=== PATIENT | male | born 1960 | race Caucasian/White ===

== ENCOUNTER 2018-06-20 05:48 | Inpatient (IN) ==
[2018-06-20] MEDS ORDERED: LIDOCAINE W/ SODIUM BICARB 0.5 ML SYR SUBD ONE (06:00)
[2018-06-20] MEDS ORDERED: ceFAZolin Inj 2gm (Premix) 2 GM/50 ML BAG IV ONE ×2 (06:00→06:04)
[2018-06-20] MEDS ORDERED: Nasal Sanitizer POPSWAB ampule 3 AMP (Nozin) PREOP DOSE ENOS SCH (06:00)
[2018-06-20] MEDS ORDERED: Lactated Ringers 1,000 ML PRIMARY IV ONE ×2 (06:00→06:04)
[2018-06-20] MEDS ORDERED: Sodium Chloride 0.9% 250 ML ONE (06:04)
[2018-06-20] MEDS ORDERED: Vancomycin Inj 1gm vial ONE ×2 (06:04→07:07)
[2018-06-20] MEDS ORDERED: LIDOCAINE W/ SODIUM BICARB 0.5 ML SYR ONE (06:05)
[2018-06-20] MEDS ORDERED: PROPOFOL 10 MG/1 ML (200 MG/20 ML) VIAL IV ONE (07:04)
[2018-06-20] MEDS ORDERED: LIDOCAINE MPF 2% - 5 ML (20 MG/1 ML) ONE (07:04)
[2018-06-20] MEDS ORDERED: ROCURONIUM 10 MG/1 ML - 5 ML VIAL IVP ONE ×2 (07:05→09:26)
[2018-06-20] MEDS ORDERED: fentaNYL Inj 250 MCG/5 ML VIAL ONE ×2 (07:05→13:20)
[2018-06-20] MEDS ORDERED: KETOROLAC 30 MG/1 ML VIAL ONE (07:06)
[2018-06-20] MEDS ORDERED: ONDANSETRON 4 MG/2 ML VIAL ONE (07:06)
[2018-06-20] MEDS ORDERED: Gentamicin Inj 40 MG/ML VIAL ONE (07:07)
[2018-06-20] MEDS ORDERED: BUPivacaine Inj 0.25% PF - 10ml vial ONE ×2 (07:07→08:06)
[2018-06-20] MEDS ORDERED: Sodium Chloride 0.9% vial 50 ML ONE (07:07)
[2018-06-20] MEDS ORDERED: BACITRACIN 50,000 UNIT VIAL IRRIG ONE (07:08)
[2018-06-20] MEDS ORDERED: BUPivacaine Liposome/PF (Exparel) Inj 20ml vial INFIL ONE (07:08)
[2018-06-20] MEDS ORDERED: THROMBIN (BOVINE) 20,000 UNIT KIT TOPICAL ONE (07:08)
[2018-06-20] MEDS ORDERED: LIDOCAINE HCL 2 % 10 ML JELLY URO-JECT TOPICAL ONE (07:16)
[2018-06-20] MEDS ORDERED: BUPIVACAINE 0.25% W/ EPI - 10 ML VIAL ONE (08:06)
[2018-06-20] MEDS ORDERED: DEXAMETHASONE PF 10 MG/1 ML VIAL ONE (08:32)
[2018-06-20] MEDS ORDERED: LIDOCAINE HCL 2 % 10 ML JELLY URO-JECT TOPICAL PRN (08:32)
[2018-06-20] MEDS ORDERED: ePHEDrine Inj 50 MG/ML AMP ONE (08:53)
[2018-06-20] MEDS ORDERED: NEOSTIGMINE 1 MG/1 ML - 10 ML ONE (10:34)
[2018-06-20] MEDS ORDERED: GLYCOPYRROLATE 0.2 MG/1 ML VIAL ONE (11:32)
[2018-06-20] MEDS ORDERED: ceFAZolin 1 GM VIAL ONE (12:33)
[2018-06-20] MEDS ORDERED: FUROSEMIDE 10 MG/1 ML - 4 ML ONE (12:37)
[2018-06-20] MEDS ORDERED: fentaNYL Inj 100 MCG/2 ML VIAL IVP PRN (15:23)
[2018-06-20] MEDS ORDERED: MORPHINE SULFATE 2 MG/1 ML IVP PRN (15:23)
[2018-06-20] MEDS ORDERED: LIDOCAINE W/ SODIUM BICARB 0.5 ML SYR SUBD PRN (15:23)
--- NOTE | 2018-06-20 15:28 | CRNA.PROGR ---
Anesthesia Time - Procedure/Recovery Time Start Date: 06/20/18 End Date: 06/20/18 Anesthesia : Time In: 07:28 Anesthesia : Time Out: 15:19 Anesthesia : Total Time: 471 - Total Anesthesia Time Total Anesthesia Time (minutes): 471 - Other Weight: 82.1 kg Height: 5 ft 9 in Body Mass Index (BMI): 26.7 Physical Status: P2 Anesthesia Type: General Anesthesia : ET
--- NOTE | 2018-06-20 15:29 | CRNA.PROGR ---
Anesthesia Recovery Phase I - Post Anesthesia Evaluation Patient's Condition on Arrival in Phase II: Stable Pain Level: 5
[2018-06-20] MEDS: HYDROmorphone 2 MG/1 ML IVP PRN ×2 (15:35→15:46)
[2018-06-20] MEDS ORDERED: HYDROmorphone 2 MG/1 ML ONE (15:36)
[2018-06-20] MEDS ORDERED: Metoclopramide Inj 10 MG/2 ML VIAL IVP PRN (16:23)
[2018-06-20] MEDS ORDERED: MAGNESIUM CITRATE 296 ML SOLUTION PO PRN (16:23)
[2018-06-20] MEDS ORDERED: Prochlorperazine Edisylate Inj 10mg/2ml vial IVP PRN (16:23)
[2018-06-20] MEDS ORDERED: Ondansetron ODT Tab 4 MG TAB PO PRN (16:23)
[2018-06-20] MEDS ORDERED: Vancomycin-PHA to Dose IV SCH (16:23)
[2018-06-20] MEDS ORDERED: oxyCODONE/APAP 10/325 Tab 1 EACH TAB PO PRN (16:23)
[2018-06-20] MEDS ORDERED: PROMETHAZINE 25 MG/1 ML VIAL IM PRN (16:23)
[2018-06-20] MEDS ORDERED: DIAZEPAM 5 MG TABLET PO PRN (16:23)
[2018-06-20] MEDS ORDERED: DIAZEPAM 10 MG/2 ML (5 MG/1 ML) CARPUJECT IVP PRN (16:23)
[2018-06-20] MEDS ORDERED: DOCUSATE 100 MG CAPSULE PO PRN (16:23)
[2018-06-20] MEDS ORDERED: Fleet Enema 133ml RECTAL PRN (16:23)
[2018-06-20] MEDS ORDERED: oxyCODONE-ACETAMINOPHEN 5-325 TAB PO PRN (16:23)
[2018-06-20] MEDS ORDERED: oxyCODONE/APAP 7.5/325 Tab 1 TAB TAB PO PRN (16:23)
[2018-06-20] MEDS ORDERED: MECOBALAMIN 1000 MCG SL SCH (16:23)
[2018-06-20] MEDS ORDERED: MAGNESIUM 400 MG/5 ML - 30 ML (MILK OF MAGNESIA) PO PRN (16:23)
[2018-06-20] MEDS ORDERED: BISACODYL 5 MG TABLET PO PRN (16:23)
[2018-06-20] MEDS ORDERED: ONDANSETRON 4 MG/2 ML VIAL IVP PRN (16:23)
[2018-06-20] MEDS: MORPHINE SULFATE 2 MG/1 ML IVP PRN ×2 (17:20→23:10)
[2018-06-20] MEDS: ceFAZolin Inj 1 GM in Sodium Chloride 0.9% 100 ML IV SCH (18:37)
--- NOTE | 2018-06-20 19:40 | GEN.OPNOTE ---
Operative Note Surgery Date: 06/20/18 Preoperative Diagnosis: 1. Chronic low back pain. 2. Left leg pain. 3. Focal advanced lumbar degenerative disc disease, L5-S1. 4. Lumbar spondylosis, advanced facet arthropathy L4-5 and L5-S1. 5. Broad based disc bulge L5-S1 producing bilateral lateral recess stenosis, left greater than right. 6. Bilateral L5 neuroforaminal stenosis, worse on the left. Postoperative Diagnosis: 1. Chronic low back pain. 2. Left leg pain. 3. Focal advanced lumbar degenerative disc disease, L5-S1. 4. Lumbar spondylosis, advanced facet arthropathy L4-5 and L5-S1. 5. Lumbar central canal stenosis with bilateral lateral recess and neuroforaminal stenosis. 6. Broad based disc bulge L5-S1 producing bilateral lateral recess stenosis, left greater than right. 7. Bilateral L5 neuroforaminal stenosis, worse on the left. Procedure: 1.) Partial L4 laminectomy with medial facetectomies and foraminotomies for decompression of central canal, bilateral lateral recess, and bilateral neuroforaminal stenosis at the L4-5 level. (CPT code: 25223-25-50). 2.) Complete L5 laminectomy with medial facetectomies and foraminotomies for decompression of bilateral lateral recess and neuroforaminal stenosis. (CPT code 09303-37-07). 3.) Arthrodesis, combined posterolateral and posterior interbody technique, L4-5. (CPT code: 09360). 4.) Arthrodesis, combined posterolateral and posterior interbody technique, L5-S1. (CPT code: 67694). 5.) Insertion 10 mm x 11 mm x [address]anium [address] titanium lumbar interbody cage filled in the center with autograft into the L4-5 interspace for fusion of the L4-5 interspace. (CPT code: 39604). 6.) Insertion 10 mm x 11 mm x [address] titanium lumbar interbody cage filled in the center with autograft into the L5-S1 interspace for fusion of the L5-S1 interspace. (CPT code: 54800). 7.) Segmental posterolateral instrumentation L4-S1 using the MilePoint Shana 3 pedicle screw and fannie system. (CPT code: 11021). 8.) Use of autograft, harvested through the same incision, cleaned of soft tissue and morselized, for interbody and posterolateral fusion. (CPT code: 29912). 9.) Use of 20cc [place] Vitoss Bimodal synthetic bone fusion product/promotor (implantable allograft), 4 cc of Marie [employer] Active Matrix (implantable allograft), and 30 cc Mei BIO DBM Putty Plus cancelleous (implantable allograft) for interbody and posterolateral fusion. (CPT code: 54262). 10.) Use of the MilePoint computer assisted neuronavigation system for cannulization of the L4, L5, and S1 pedicles bilaterally for the subsequent placement of the L4, L5, and S1 pedicle screws bilaterally. (CPT code: 37030). 11.) Use of intra-operative fluoroscopy for localization of the correct surgical level and for final confirmation of the position of the L4-5 intervertebral cage and final confirmation of the position of the L4-5 posterolateral hardware elements. 12.) Use of intra-operative neuromonitoring including free running EMG's, triggered EMG's, and SSEP's. Surgeon: Donnie Hernandez MD [employer] Crewman: AMANDA Deras Anesthesia Provider: Danny Lehman MD Anesthesia Type: General Estimated Blood Loss (mL): 600 Fluids: See anesthesia record Pathology: None Indications: Mr. Painting is a 57 year old male who presented on 11/07/2017 in new patient evaluation in my [facility] [place]. He was a previous patient of mine in my previous [facility] practice. He was last seen in my [facility] outreach clinic on 01/20/2017. He had imaging studies that demonstrated degenerative changes most advanced at the L4-5 and L5-S1 levels. He had failed non-operative treatments including multiple lumbar percutaneous procedures performed by Dr. Glass. Mr. Painting presented to my new practice with the same symptoms that he had previously but worse; low back pain and left leg pain. He has had back issues since the 1979'S. He has had additional injections by Dr. Glass in the past year and done physical therapy that have not provided any durable relief of his symptoms. We had discussed proceeding with a L4-5 and L5-S1 transforaminal lumbar interbody and L4-S1 posterolateral instrumented fusion for potential durable relief of his symptoms. He wished to undergo the surgical procedure and presented today to have that procedure performed. Findings: 1.) Arthropathy/hypertrophy of the L4-5 and L5-S1 facet joints bilaterally. 2.) Lumbar central canal, bilateral lateral recess, and bilateral neuroforaminal stenosis, L4-5. 3.) Severe bilateral lateral recess and severe bilateral neuroforaminal stenosis, L5-S1. Complications: None Operative Summary: Mr. Painting was met in the pre-operative area. His surgical history and physical in his chart was reviewed. I reviewed with him the procedure to be performed and we were in agreement on the procedure and this matched what was written on the patient's consent form. I answered any questions that he had before he was taken back to the operating room suite. Mr. Painting was brought back to the operating room suite. He was put under general anesthesia and intubated by the anesthesia staff. He had a Jennings catheter placed in his bladder for the procedure. He had pneumatic compression hose placed on his lower legs bilaterally. Mr. Painting was carefully rolled over onto the Ayaz surgical table. His arms were gently positioned upwards with his shoulders abducted less than 90. His arms were well-padded with foam padding on top of the padding the surgical armboards. The region of his chest and axilla was checked bilaterally to make sure that there were no pressure points over the region of the brachial plexus bilaterally. His nipples were checked be below the chest pad of the Ayaz table with no pressure points. All bony prominences were well padded. His Jennings catheter was checked be free from kinks. His pneumatic compression hose was attached and pneumatic compression device. The C-arm fluoroscopy unit was used to help jerrell the skin incision for the appr oach to the intended surgical levels. The intended incision with several crosshatches were marked on the skin with a skin marker. Mr. Alonzo was prepped and draped in the usual and standard fashion. He was given 2 grams of Ancef and a gram of vancomycin IV for perioperative antibiosis. He was given 10 mg of Decadron IV. A standard surgical timeout was performed identifying the correct patient, the correct procedure, and the correct equipment being available for the procedure. The intended skin incision was injected subcutaneously with quarter percent Marcaine with 1 in 200,000 epinephrine. 20 mL of local anesthetic was used. The skin was incised with a 10 blade scalpel and all dermal and superficial bleeding points were controlled with bipolar cautery. Dissection was continued down through the subcutaneous tissue to the lumbar fascia. The lumbar fascia was incised along the borders of the spinous processes and subperiosteal dissection was performed down the spinous processes and out over the lamina with Bovie cautery. When the inferior aspect of the lamina was identified a [place] 4 was placed underneath the lamina and the level was localized with lateral fluoroscopy. Continued subperiosteal dissection was performed until the final exposure was of the inferior aspect the L3 lamina, the L4 lamina, the L5, and the upper part of the sacrum bilaterally. The dissection was continued laterally over the L3-4 and L4-5 and L5-S1 facet joints and out laterally over the L4 and L5 transverse processes and the sacral alar bilaterally. Cerebellar Gelpi retractors were placed for self-retaining retraction. Soft tissue was cleaned over the posterior aspect of the spine using Bovie cautery as well as a large Leksell rongeur. Extensive decortication of the L4, and L5 transverse processes and the sacral alar bilaterally as well as the lateral aspect of the L3-4 facet joint and the lateral and posterior aspect of the L4-5 and L5-S1 facet joints after removing the hypertrophied posterior aspect of the L4-5 and L5-S1 facet joints with a large Leksell rongeur bilaterally was performed. The L5 lamina and the upper part of the sacrum was decorticated as well. All decortication was performed with a high-speed [employer] electric drill with a matchstick bit. The bone dust created was collected and saved to be used as autograft for the fusion portion of the procedure. The Mei neuro navigation reference arc was securely attached to the L3 spinous process and a spin was performed with the [facility] 3-D fluoroscopy unit. The Mei neuro navigation pedicle probe was then used to cannulate the L4, L5, and S1 pedicles bilaterally. A Jamshidi needle was then inserted into the left L4 pedicle and 15cc of vertebral body bone marrow was collected and used to saturate 20 mL of the Mei Vitoss synthetic bone product (with the Vitoss also saturated with 5 cc of Marie [employer] Active Matrix (implantable allograft)), intended for the posterior lateral fusion. The internal aspects of the L4, L5, and S1 pedicles were palpated bilaterally with a small ball-tip instrument. The pedicles were then tapped with the appropriate size Mei Josue 3 pedicle tap. The internal aspect of the pedicles were palpated with a small ball-tip instrument again. The pedicle screws were then placed. 5.5 x 55 mm pedicle screws were placed into the L4 and L5 pedicles bilaterally. 6.5 x 50 mm pedicle screws were placed into the S1 pedicles bilaterally. The pedicle screws obtained good purchase in the pedicle and vertebral body bone at each level bilaterally. The pedicle screws were then interrogated with triggered EMGs all demonstrating sufficiently high impedance (30 mA or above) indicating that all the pedicle screws were not in close proximity to nerve s tructures. Another spin was performed with the [employer] 3-D fluoroscopy unit providing further confirmation that the pedicle screws were indeed confined within the confines of the pedicles at each level bilaterally and that the pedicle screws were all bi-cortical or nearly bi-cortical in purchase as intended. Attention was turned to the decompression portion of the procedure. The caudal aspect of the L4 spinous process and the L5 spinous process was removed with a large Leksell rongeur. The L4 and L5 lamina was thinned down with the same instrument. A partial laminectomy of L4 and complete laminectomy of L5 with medial facetectomies and foraminotomies was performed bilaterally. Surgical findings included central canal, lateral recess and neuroforaminal stenosis bilaterally, greater in degree then expected on pre-operative imaging and severe L5-S1 lateral recess and neuroforaminal stenosis bilaterally. Excellent decompression of the central canal, lateral recesses, neuroforamen, and of the thecal sac and exiting and transversing nerve roots was assured by visual inspection as well as palpating in the canal and around the nerve structures with a [place] instrument. The medial facetectomy on the left at L4-5 and L5-S1 were extended laterally to provide the proper exposure needed for the intended interbody fusions at these levels. The lateral extension of the medial facetectomies were performed with the high-speed drill with a matchstick bit. A [place] 4 instrument was used to carefully dissect the soft tissue adjacent to the takeoff of the L5 nerve root and of the S1 nerve root identifying respectively the L4-5 and L5-S1 disc spaces. The Angelica nerve root retractor was used to gently retract the thecal sac and the takeoff the L5 nerve root. Epidural veins over the disc space were coagulated with bipolar cautery turned down to a low setting and then cut with microscissors. An annulotomy was performed in the L4-5 disc space with a 15 blade scalpel and disc material being removed with a pituitary rongeur. Additional disc and cartilaginous endplate was loosened in the disc space using the K2 disc space jessica in 1 mm increments from 7 mm disc space shaver to a 9 mm disc space shaver. Between the disc space jessica additional disc material was removed from the interspace using a pituitary rongeur. The large Yg down-biting curet was used to loosen disc laterally in the L4-5 disc space bilaterally with the fragments being removed with a pituitary rongeur. The large Yg down-biting curet was then used to decorticate the inferior L4 endplate and the superior L5 endplate in the L4-5 interspace. The interspace was then irrigated with bacitracin irrigation. Approximately 3.5 cc of Mei BIO DBM Putty Plus cancelleous (implantable allograft) was then placed in the L4-5 interspace and moved anteriorly with a bone tamp. The interspace was then sized for the appropriate size lumbar interbody cage. A 10 mm x 11 mm x [address] titanium lumbar interbody cage was selected and filled in the center with autograft and inserted into the L4-5 interspace using the fisher scallop. The cage was gently countersunk and rotated with a bone tamp and mallet. The cage obtained good purchase between the L4 and L5 endplates. The final position of the intervertebral cage was confirmed with lateral fluoroscopy. The Sydnee'Mag nerve root retractor was used to gently retract the thecal sac and the takeoff the S1 nerve root. Epidural veins over the disc space were coagulated with bipolar cautery turned down to a low setting and then cut with microscissors. An annulotomy was performed in the L5-S1 disc space with a 15 blade scalpel and disc material being removed with a pituitary rongeur. Additional disc and cartilaginous endplate was loosened in the disc space using the K2 disc space jessica in 1 mm increments from 7 mm disc space shaver to a 9 mm disc space shaver. Between the disc space jessica additional disc material was removed from the interspace using a pituitary rongeur. The large Yg down-biting curet was used to loosen disc laterally in the L4-5 disc space bilaterally with the fragments being removed with a pituitary rongeur. The large Yg down-biting curet was then used to decorticate the inferior L4 endplate and the superior L5 endplate in the L4-5 interspace. The interspace was then irrigated with bacitracin irrigation. Approximately 3.5 cc of MilePoint BIO DBM Putty Plus cancelleous (implantable allograft) was then placed in the L5-S1 interspace and moved anteriorly with a bone tamp. The interspace was then sized for the appropriate size lumbar interbody cage. A 10 mm x 11 mm x 28 mm Tritanium PL titanium lumbar interbody cage was selected and filled in the center with autograft and inserted into the L5-S1 interspace using the fisher scallop. The cage was gently countersunk and rotated with a bone tamp and mallet. The cage obtained good purchase between the L4 and L5 endplates. The final position of the intervertebral cage was confirmed with lateral fluoroscopy. Attention was turned back to the instrumentation portion of the procedure. A 6.0 mm x 60 mm pre-bent Mei Josue 3 titanium fannie was selected and placed in the t[place]ips of the L4, L5, and S1 pedicle screws bilaterally. Set screws were placed over the rods in the tulips of each of the pedicle screws which were tightened down hand tight initially and then tightened down to their final tightness using the torque/counter torque device. The surgical site was irrigated with a 4:1 solution of hydrogen peroxide/cholohexedine solution. The surgical site was then pulse lavaged with 3 L of vancomycin/bacitracin/gentamicin solution. The paraspinous musculature was retracted and 10 mL of MilePoint Vitoss Bimodal synthetic bone product (allograft) saturated with a 5 mL of vertebral body bone marrow and 5 cc of T3 [employer] Active Matrix was then placed lateral to the hardware construct on each side from the L4 transverse process to over the sacral alar and upper part of the sacrum bilaterally. The remaining autograft was mixed with the remaining approximately 23 mL of [place] BIO DBM Putty Plus cancelleouus which was then split with half of this product being placed lateral to the hardware construct over the bone chips and Vitoss synthetic bone product from the L4 transverse process to sacral alar and over the upper part of the sacrum bilaterally. The canal lateral recesses were inspected for any bone chips and any identified were removed with forceps. The canal lateral recesses were then irrigated with a small amount bacitracin irrigation which was subsequently removed with suction. FloSeal hemostatic agent was then placed in the lateral recess and over all exposed dural elements. A piece of compressed Gelfoam was then placed across the canal. A medium Hemovac drain was placed in the surgical site. The lumbar fascia was closed tightly with #1 Vicryl suture in an interrupted fashion. The surgical site was irrigated again with bacitracin irrigation. The deep subcutaneous tissue and fascia was re-approximated with 2-0 Vicryl suture in an interrupted fashion. 20 mL of Exoperel deluded with 10 mL of 1/4 percent Marcaine was then injected all around the incision in the subcutaneous tissue. The dermis and superficial subcutaneous tissue was reapproximated with 3-0 Vicryl suture in an inverted interrupted fashion. The Ioban drape was pulled back from the skin edges and the final layer of closure was performed surgical stainless steel rajesh. The incision was cleansed with bacitracin soaked sponge and then dried with sterile dry sponge. The incision was then dressed with a Covaderm dressing. All surgical drapes removed from Mr. Painting. He was carefully rolled over onto the PACU stretcher. He was awoken and extubated by the anesthesia staff. He was taken the recovery room in stable condition. All surgical counts reported as correct by the scrub and circulating personnel. A physician's transport assistant, Mrs. Federica Sanders PA-C, assisted with the procedure including the exposure and closure portions of the procedure. She provided irrigation and suctioning throughout the procedure. She skillfully and carefully retracted the nerve structures during the more critical portions of the procedures such as the discectomy and intervertebral cage placement portions of the procedure.
[2018-06-20] MEDS: GlipiZIDE Tab 5 MG TABLET PO SCH (20:33)
[2018-06-20] MEDS: metFORMIN 500 MG TABLET PO SCH (20:33)
[2018-06-20] MEDS: GABAPENTIN 400 MG CAPSULE PO SCH (20:34)
--- NOTE | 2018-06-20 20:47 | NEURO.PROG ---
Subjective Post Op Day: 0 Pain Management: PO Jennings Catheter: No Diet: Regular Ambulating: Yes Additional Details: Awake and alert in room on med/surg floor. Appears comfortable sitting on the side of the bed. Moving all extremities. PLAN; 1.) Continue post-operative antibiotics. 2.) Continue post-operative pain control. 3.) Mobilize. Objective : Data - Vital Signs Vital Signs and I&O: Vital Signs - Last Taken Temperature 97.5 F 06/20/18 20:32 Pulse Rate 102 H 06/20/18 20:32 Respiratory Rate 16 06/20/18 20:32 Blood Pressure 124/65 06/20/18 20:32 Pulse Ox 95 06/20/18 20:32 Intake and Output (24hr x 4 totals) 06/18/18 06/19/18 06/20/18 06/21/18 05:59 05:59 05:59 05:59 Intake Total 4100 / 4100 Output Total 1345 / 1345 Balance 2755 / 2755
[2018-06-20] MEDS ORDERED: traZODone Tab 50 MG TAB PO SCH ×2 (21:00→22:00)
--- NOTE | 2018-06-20 22:47 | CONSULT ---
Consult Note - Consult Reason for Consult: PostOp Consulation : Neuro Primary Care Provider: NONE NONE HPI - History of Present Illness History of Present Illness: There is a very nice patient who is postop 2 level fusion. Hospitalist was consulted for medical management of his diabetes patient denies any chest pain nausea or vomiting Past Medical History Medical History: Diabetes, hypertension, chronic back pain Tobacco Use: Former Smoker In the Past 12 Months, Have Used or Abuse Any of the Following Substance: None Review of Systems - Review of Systems All Systems: Reviewed & No Additional Complaints Except as Stated - Respiratory Respiratory: DENIES: Negative System Review, Cough, Sputum, Dyspnea At Rest, Dyspnea with Exertion, Pleuritic Pain, Hemoptysis, Wheezing, Other, See HPI - Cardiovascular Cardiovascular: DENIES: Negative System Review, Chest Pain, Edema, Syncope, Palpitations, Orthopnea, Paroxysmal Nocturnal Dyspnea, Other, See HPI Medication / Allergies Home Medications: Home Medications Medication Instructions Recorded Confirmed ascorbic acid (vitamin C) 500 mg mg PO 11/07/17 03/06/18 capsule aspirin 325 mg tablet 325 mg PO QDAY 11/07/17 06/19/18 biotin 5 mg capsule 5 mg PO QDAY 11/07/17 06/19/18 gabapentin 800 mg tablet 800 mg PO TID tab 11/07/17 06/19/18 glipizide 5 mg tablet 5 mg PO BID 11/07/17 06/19/18 lisinopril 2.5 mg tablet 2.5 mg PO QDAY 11/07/17 06/19/18 mecobalamin (vitamin B12) 1,000 1,000 mcg SL QDAY 11/07/17 06/19/18 mcg disintegrating tablet,sublingual metformin 1,000 mg tablet 1,000 mg PO BID 11/07/17 06/19/18 multivitamin,eq-ghvj-tgdavkob 1 tab PO QDAY 11/07/17 06/19/18 tablet trazodone 100 mg tablet 200 mg PO QDAY 11/07/17 06/19/18 venlafaxine ER 150 mg 150 mg PO QDAY 11/07/17 06/19/18 capsule,extended release 24 hr Allergies/Adverse Reactions: Allergies Allergy/AdvReac Type Severity Reaction Status Date / Time No Known Allergies Allergy Verified 06/20/18 06:18 Exam - Vitals Vital Signs: Vital Signs Temperature 97.5 F Temperature Source Temporal Artery Scan Pulse Rate [Pulse Oximeter] 102 Pulse Rate 105 Respiratory Rate 16 Blood Pressure [Left Arm] 124/65 Blood Pressure 130/73 Pulse Ox 95 Oxygen Flow Rate 4 Oxygen Delivery Method Nasal Cannula Height 5 ft 9 in Weight 181 lb - General General Appearance: No Acute Distress, Cooperative - Respiratory Respiratory Exam: POSITIVE: Clear to Auscultation - Bilaterally, Breathing Non Labored, Normal To Percussion, Normal to Percussion and Palpation - Cardiovascular Cardiovascular Exam: POSITIVE: RRR, No Murmur, No Clicks, No Gallops, No Rubs, PMI Non-Displaced Assessment and Plan - Patient Problems (1) Chronic back pain Current Visit: No Status: Chronic Code(s): M54.9 - Dorsalgia, unspecified; G89.29 - Other chronic pain (2) Chronic hepatitis Current Visit: No Status: Chronic Code(s): K73.9 - Chronic hepatitis, unspecified (3) Depression Current Visit: No Status: Chronic Code(s): F32.9 - Major depressive disorder, single episode, unspecified (4) Diabetic acidosis, type II Current Visit: No Status: Chronic Code(s): E11.10 - Type 2 diabetes mellitus with ketoacidosis without coma (5) Hepatitis C Current Visit: No Status: Chronic Code(s): B19.20 - Unspecified viral hepatitis C without hepatic coma (6) History of alcohol abuse Current Visit: No Status: Chronic Code(s): Z87.898 - Personal history of other specified conditions - Assessment / Plan Additional Assessment/Plan Details: We will continue home meds for his chronic medical conditions postop instructions as per neurosurgery. Check labs in a.m.
[2018-06-20] MEDS: traZODone Tab 50 MG TAB PO SCH (23:00)
[2018-06-21] MEDS: ceFAZolin Inj 1 GM in Sodium Chloride 0.9% 100 ML IV SCH (01:59)
[2018-06-21] MEDS: MORPHINE SULFATE 2 MG/1 ML IVP PRN ×2 (04:28→22:50)
[2018-06-21 04:45] LABS: BASOPHILS # (AUTO) 0 10*3/UL; BASOPHILS % (AUTO) 0 % (0-1); EOSINOPHILS # (AUTO) 0 10*3/UL; EOSINOPHILS % (AUTO) 0 % (0-8); Hematocrit [HCT] 30.5 % (42.0-52.0); Hemoglobin [HGB] 10.3 g/dL (14.0-18.0); LYMPHOCYTES # (AUTO) 1.26 10*3/uL; MEAN CORPUSCULAR HEMOGLOBIN 29.6 PG (27-31); MEAN CORPUSCULAR HGB CONC 33.8 g/dL (33-37); MEAN CORPUSCULAR VOLUME 87.6 FL (80-90); MEAN PLATELET VOLUME 9.9 FL (7.4-12.2); MONOCYTES # (AUTO) 1.62 10*3/UL (0.3-0.8); MONOCYTES % (AUTO) 11.9 % (5-15); NEUTROPHILS # (AUTO) 10.74 10*3/UL; NEUTROPHILS % (AUTO) 78.6 % (50-80); RED BLOOD COUNT 3.48 10^6/uL (4.70-6.10)
[2018-06-21 04:55] LABS: BLOOD UREA NITROGEN 17 mg/dL (7-22)
[2018-06-21 05:30] LABS: PLATELET MORPHOLOGY COMMENT NORMAL MORPHOLOGY (NORM); RBC MORPHOLOGY COMMENT NORMAL MORPHOLOGY (NORM); WBC MORPHOLOGY COMMENT NORMAL MORPHOLOGY (NORM)
--- NOTE | 2018-06-21 06:43 | NEURO.PROG ---
Subjective Post Op Day: 1 Pain Management: PO Blood Catheter: Yes Diet: Regular Additional Details: On rounds this morning with Dr Hernandez, Mr Painting is awake and alert. He complains of back pain but says his left leg pain seems to be less. He has 5/5 dorsi and plantar flexion bilaterally and good quad strength. Hemovac drainage is a total of 250ml since surgery with 100 in the past 12 hours. He says he is hungry. Plan today is to mobilize, discontinue blood catheter and discontinue hemovac drain after he has amubulated. His pain medication has been changed to oxycodone. Objective : Data - Labs CBC and BMP: 06/21/18 04:10 06/21/18 04:10 - Vital Signs Vital Signs and I&O: Vital Signs - Last Taken Temperature 97.7 F 06/21/18 04:48 Pulse Rate 82 06/21/18 04:48 Respiratory Rate 16 06/21/18 04:48 Blood Pressure 106/62 06/21/18 04:48 Pulse Ox 96 06/21/18 05:29 Intake and Output (24hr x 4 totals) 06/19/18 06/20/18 06/21/18 06/22/18 05:59 05:59 05:59 05:59 Intake Total 5938 / 5938 Output Total 2345 / 2345 Balance 3593 / 3593
[2018-06-21] MEDS: PANTOPRAZOLE 40 MG TABLET PO SCH (07:28)
[2018-06-21] MEDS: oxyCODONE IR Tab 5 MG TAB PO PRN ×4 (07:32→20:13)
[2018-06-21] MEDS ORDERED: traZODone Tab 50 MG TAB PO SCH (09:00)
[2018-06-21] MEDS: GABAPENTIN 400 MG CAPSULE PO SCH ×3 (09:55→20:13)
[2018-06-21] MEDS: VENLAFAXINE HCL XR 150 MG CAP PO SCH (09:55)
[2018-06-21] MEDS: Multivitamin Tab 1 TAB PO SCH (09:55)
[2018-06-21] MEDS: GlipiZIDE Tab 5 MG TABLET PO SCH ×2 (09:56→20:13)
[2018-06-21] MEDS: metFORMIN 500 MG TABLET PO SCH ×2 (09:56→20:13)
[2018-06-21] MEDS: LISINOPRIL 5 MG TABLET PO SCH (09:56)
--- NOTE | 2018-06-21 10:30 | PDOC(PROG) ---
Interval History: No complaints doing well has visited with Dr. Mary neumann this morning in regards to his back surgery no chest pain nausea vomiting Objective : Data - Labs CBC and BMP: 06/21/18 04:10 06/21/18 04:10 Objective : Exam - Respiratory Respiratory Exam: Clear to Auscultation - Bilaterally, Breathing Non Labored, Normal To Percussion, Normal to Percussion and Palpation - Cardiovascular Cardiovascular Exam: RRR, No Murmur, No Clicks, No Gallops, No Rubs, PMI Non- Displaced - GI/Abdominal GI/Abdominal Exam: Normal Bowel Sounds, Non Tender, Non Distended, Soft, No Masses, No Hepatomegaly, No Splenomegaly, No Organomegaly Assessment and Plan - Patient Problems (1) Chronic back pain Current Visit: No Status: Chronic Comment: Sinus post 2 level fusion deferred to neurosurgery team Code(s): M54.9 - Dorsalgia, unspecified; G89.29 - Other chronic pain (2) Chronic hepatitis Current Visit: No Status: Chronic Comment: Stable Code(s): K73.9 - Chronic hepatitis, unspecified (3) Depression Current Visit: No Status: Chronic Comment: Stable Code(s): F32.9 - Major depressive disorder, single episode, unspecified (4) Diabetic acidosis, type II Current Visit: No Status: Chronic Comment: Continue current meds sugars within control Code(s): E11.10 - Type 2 diabetes mellitus with ketoacidosis without coma (5) Hepatitis C Current Visit: No Status: Chronic Comment: Stable Code(s): B19.20 - Unspecified viral hepatitis C without hepatic coma (6) History of alcohol abuse Current Visit: No Status: Chronic Comment: Stable Code(s): Z87.898 - Personal history of other specified conditions
--- NOTE | 2018-06-21 12:59 | PTI REPORT ---
Thank you for the referral of Daniele Painting. He was seen on 06/21/18 for an inpatient evaluation status post lumbar fusion. SUBJECTIVE: The patient is a 58-year-old male who was referred by Dr. Hernandez secondary to a back fusion yesterday. The patient lives in [place]. He states he does have some help 24-hours a day in [place]. He has a ramp into his house and no stairs in or out of his house. PAST MEDICAL HISTORY: Past medical history can be found in the patient's medical record. OBJECTIVE FINDINGS: General observations: The patient was seen in his room. He was alert and oriented x3. Pain: The patient rates his pain as a 3-4/10 on the verbal analog scale (0=no pain, 10=worst pain). Sensation: The patient has good feeling and sensation in his feet. Transfers: The patient required a walker and minimal assist of one to come from sit to stand. Ambulation: The patient ambulated about 200 feet with assistance. His right leg did buckle on about three occasions and it was probably a good thing we were there to help him. He did catch himself with use of the walker. ASSESSMENT: The patient understands the precautions of no bending/lifting/twisting. We did review those at length. He states that he has been through this before and understands some of his OT goals as well. They will be up to visit him later on this afternoon. The patient is doing well. He is still having a little bit of pain and his right leg is unpredictably unstable. He is a moderate risk for falling at this point. The therapist does recommend the use of the walker. Short-Term Goals: To be met by discharge from inpatient: Patient will be able to transfer from bed to stand independently. Patient will be able to ambulate 300 feet with least restrictive assistive device. Patient will report a pain level of 2/10 or less. Long-Term Goals: To be met following discharge from inpatient: Patient will be discharged to his home in [place], safe and independent with all functional transfers and ADLs. TREATMENT PLAN: Patient will be seen B.I.D during the week and one time per day over the weekend as an inpatient for transfer training, ambulation, and general functional mobility. INITIAL TREATMENT: Treatment today consisted of the initial evaluation activities only. Following treatment the patient was left in bed with bed alarm set and call light within reach. JORGE
--- NOTE | 2018-06-21 15:35 | PT.PROG ---
Progress Note Progress Note: S. patient stated he is hurting today. O. Patient ambulated 200 feet around the nurses station and back to his room where he was left in his chair with alarm and call light. A. Patient tolerated ambulation well, he was able to ambulate with contact guard assist. Patient would continue to benefit from skilled therapy to increase strength, mobility and safety. P. Continue POC.
[2018-06-21] MEDS: traZODone Tab 50 MG TAB PO SCH (22:49)
[2018-06-22] MEDS: oxyCODONE IR Tab 5 MG TAB PO PRN ×5 (04:08→22:16)
[2018-06-22] MEDS: PANTOPRAZOLE 40 MG TABLET PO SCH (07:16)
[2018-06-22] MEDS: LISINOPRIL 5 MG TABLET PO SCH (08:50)
[2018-06-22] MEDS: GlipiZIDE Tab 5 MG TABLET PO SCH ×2 (08:50→20:39)
[2018-06-22] MEDS: metFORMIN 500 MG TABLET PO SCH ×2 (08:50→20:39)
[2018-06-22] MEDS: GABAPENTIN 400 MG CAPSULE PO SCH ×3 (08:50→20:39)
[2018-06-22] MEDS: Multivitamin Tab 1 TAB PO SCH (08:51)
[2018-06-22] MEDS: VENLAFAXINE HCL XR 150 MG CAP PO SCH (08:51)
--- NOTE | 2018-06-22 09:16 | NEURO.PROG ---
Subjective Post Op Day: 2 Pain Management: PO Jennings Catheter: No Flatus: Yes Diet: Regular Ambulating: Yes Additional Details: Mr. Painting is up in the chair for breakfast. He states that his mid back pain is his biggest complaint and that his leg symptoms of pain and tingling are improved. He does have some left lateral thigh pain this morning which he said will be better when he's up moving around. His dorsi and planter flexion are strong as are his quad strengths. His incision is dry and intact without erythema. Drainage in drain is sero sanguinous. He has ambulated with Pt without difficulty. He is afebrile, his V/S are stable. We talked about his plan for discharge tomorrow, as well as his incision care and activity for home. Follow up appointment has been made with Dr. Hernandez in [place] on July 03. Plan: Continue to mobilize Discontinue drain Discontinue Valium and start Flexeril Ready for discharge in am from a neuro surgery standpoint. Objective : Data - Labs CBC and BMP: 06/21/18 04:10 06/21/18 04:10 - Vital Signs Vital Signs and I&O: Vital Signs - Last Taken Temperature 98.6 F 06/22/18 07:17 Pulse Rate 98 06/22/18 07:17 Respiratory Rate 18 06/22/18 07:17 Blood Pressure 113/82 06/22/18 07:17 Pulse Ox 98 06/22/18 07:17 Intake and Output (24hr x 4 totals) 06/20/18 06/21/18 06/22/18 06/23/18 05:59 05:59 05:59 05:59 Intake Total 5938 / 5938 2475 / 2475 360 / 360 Output Total 2345 / 2345 1725 / 1725 850 / 850 Balance 3593 / 3593 750 / 750 -490 / -490
--- NOTE | 2018-06-22 09:45 | OTI REPORT ---
Thank you for the referral of Daniele Painting. He was seen on 06/21/18 for an occupational therapy inpatient evaluation status post lumbar fusion. SUBJECTIVE: The patient is a 58-year-old male who is being seen secondary to having a low back fusion. The patient lives in [place]. He reports that prior to admission he was independent with ADLs. PAST MEDICAL HISTORY: Past medical history can be found in the patient's medical record. OBJECTIVE FINDINGS: General observations: The patient was educated in his back precautions including no bending/lifting/twisting. Activities of daily living: The patient was issued a grinding wheel operator, sock aide, and bath sponge and practiced with the grinding wheel operator and sock side. The patient required min assist to use equipment. He does have a high rise toilet seat as well as a shower chair. Bed mobility: The patient was able to come from supine to sit with increased time and verbal cues. He states this does slightly increase his pain. Transfers: The patient requires min assist to transfer from sit to stand. The patient completed a toilet transfer with contact guard assist. ASSESSMENT: The patient would benefit from at least one more OT session to improve his overall abilities and use of adaptive devices. Short-Term Goals: To be met by discharge from inpatient: Patient will be able to [] Patient will be able to [] Patient will be able to [] Patient will be able to [] Long-Term Goals: To be met following discharge from inpatient: Patient will be able to [] Patient will be able to [] TREATMENT PLAN: Patient will be seen for at least one more session. INITIAL TREATMENT: Treatment today consisted of the initial evaluation followed by instruction on adaptive equipment and review of back precautions. JORGE
--- NOTE | 2018-06-22 10:42 | PDOC(PROG) ---
Interval History: No complaints no chest pain nausea vomiting Objective : Data - Labs CBC and BMP: 06/21/18 04:10 06/21/18 04:10 Assessment and Plan - Patient Problems (1) Chronic back pain Current Visit: No Status: Chronic Comment: Status post surgery patient will be discharged home in the morning all scripts were written by neurosurgery as well as follow-ups Code(s): M54.9 - Dorsalgia, unspecified; G89.29 - Other chronic pain (2) Chronic hepatitis Current Visit: No Status: Chronic Code(s): K73.9 - Chronic hepatitis, unspecified (3) Depression Current Visit: No Status: Chronic Code(s): F32.9 - Major depressive disorder, single episode, unspecified (4) Diabetic acidosis, type II Current Visit: No Status: Chronic Code(s): E11.10 - Type 2 diabetes mellitus with ketoacidosis without coma (5) Hepatitis C Current Visit: No Status: Chronic Code(s): B19.20 - Unspecified viral hepatitis C without hepatic coma (6) History of alcohol abuse Current Visit: No Status: Chronic Code(s): Z87.898 - Personal history of other specified conditions - Assessment / Plan Additional Assessment/Plan Details: All other medical conditions are stable no changes to home meds
--- NOTE | 2018-06-22 11:00 | OT.PROG ---
Progress Note Progress Note: S: pt stated that he was feeling good. O: tx consisted of functional transfer from standing to EOB were pt needed x1 VC for safety. pt then completed doffing of back brace and donning of UE shirt independently. pt then completed doffing of socks with use of turn sewer and completed log roll into bed. A: pt tolerated session well. P: continue POC
--- NOTE | 2018-06-22 11:24 | PT.PROG ---
Progress Note Progress Note: S. Patient stated that he is feeling good today. O. Patient ambulated 200 feet around the nurses station and back to his room where he was left with OT for further therapy. A. Patient tolerated ambulation well. he was able to ambulate with stand by guard assist. Patient would benefit from one more session of therapy at this time. P. Continue POC.
[2018-06-22] MEDS: CYCLOBENZAPRINE 10 MG TABLET PO PRN ×2 (12:41→20:37)
--- NOTE | 2018-06-22 15:50 | PT.PROG ---
Progress Note Progress Note: S. Patient stated that he is having a little soreness this afternoon O. Patient ambulated 200 feet around the nurses station and back to his room where he was left in bed with alarm and call light. A. Patient tolerated ambulation well, he required min assist with balance during ambulation. P. continue POC until discharge.
--- NOTE | 2018-06-22 16:07 | OT.PROG ---
Progress Note Progress Note: S: pt reported his Lower back was feeling tight. He reported that he was not sure if her ordered dinner yet. He stated that this afternoon was the first time he was able to get into bed by himself. O: pt was seen in his room and using log roll technique he completed bed mobility Ind. He completed transfer apprx 350 ft while taking x3 breaks but remained standing. He completed toile transfer Ind as well. He once again completed bed mobility Ind and was left in supine position in bed per his request. A: pt participated well and although LB was tight he completed transfers very well and displayed good activity tolerance. P: Continue per pOC.
[2018-06-22 19:59] LABS: Hematocrit [HCT] 27.9 % (42.0-52.0); Hemoglobin [HGB] 9.4 g/dL (14.0-18.0); MEAN CORPUSCULAR HEMOGLOBIN 29.8 PG (27-31); MEAN CORPUSCULAR HGB CONC 33.7 g/dL (33-37); MEAN CORPUSCULAR VOLUME 88.6 FL (80-90); MEAN PLATELET VOLUME 9.8 FL (7.4-12.2); RED BLOOD COUNT 3.15 10^6/uL (4.70-6.10)
--- NOTE | 2018-06-22 21:50 | DI ---
EXAM: XR Chest, 2 Views CLINICAL HISTORY: ITS.REASON R/O PNU Physician Notes: Tech Comments: TECHNIQUE: Frontal and lateral views of the chest. COMPARISON: No relevant prior studies available. FINDINGS: Lungs: Mild perihilar/infrahilar opacities, possible atelectasis or developing infiltrate. Pleural space: Unremarkable. No pneumothorax. Heart: Unremarkable. Mediastinum: Unremarkable. Bones/joints: No acute fracture. IMPRESSION: Mild perihilar/infrahilar opacities, possible atelectasis or developing infiltrate.
[2018-06-22] MEDS ORDERED: Hold Metformin-See Instruction 1 EACH MIS PRN (22:01)
[2018-06-22] MEDS: traZODone Tab 50 MG TAB PO SCH (22:16)
[2018-06-22] MEDS ORDERED: cefTRIAXone Inj 2 GM in Sodium Chloride 0.9% 100 ML IV SCH (22:30)
--- NOTE | 2018-06-22 23:29 | DI ---
EXAM: CT Angiography Chest With Intravenous Contrast CLINICAL HISTORY: ITS.REASON atelectasis Physician Notes: Tech Comments: TECHNIQUE: Axial computed tomographic angiography images of the chest with intravenous contrast using pulmonary embolism protocol. MIP reconstructed images were created and reviewed. COMPARISON: No relevant prior studies available. FINDINGS: Pulmonary arteries: No evidence of pulmonary embolism. Aorta: No aortic aneurysm or dissection. Lungs: Mild basilar densities, likely atelectasis. Mild peribronchial thickening. Pleural space: No significant effusion. No pneumothorax. Heart: Unremarkable. Bones/joints: No acute fracture. Soft tissues: Unremarkable as visualized. Lymph nodes: Unremarkable. Gallbladder and bile ducts: Cholecystectomy. Spleen: Mild splenomegaly. IMPRESSION: 1. No evidence of PE or aortic dissection. 2. Mild basilar densities, likely atelectasis.
[2018-06-23 05:45] LABS: BASOPHILS # (AUTO) 0.01 10*3/UL; BASOPHILS % (AUTO) 0.1 % (0-1); EOSINOPHILS # (AUTO) 0.01 10*3/UL; EOSINOPHILS % (AUTO) 0.1 % (0-8); Hematocrit [HCT] 29.2 % (42.0-52.0); Hemoglobin [HGB] 9.7 g/dL (14.0-18.0); MEAN CORPUSCULAR HGB CONC 33.2 g/dL (33-37); MEAN CORPUSCULAR VOLUME 87.2 FL (80-90); MEAN PLATELET VOLUME 10.3 FL (7.4-12.2); MONOCYTES # (AUTO) 1.72 10*3/UL (0.3-0.8); MONOCYTES % (AUTO) 13.9 % (5-15); NEUTROPHILS # (AUTO) 8.58 10*3/UL; NEUTROPHILS % (AUTO) 69.5 % (50-80); RED BLOOD COUNT 3.35 10^6/uL (4.70-6.10)
[2018-06-23 06:14] LABS: PLATELET MORPHOLOGY COMMENT NORMAL MORPHOLOGY (NORM); RBC MORPHOLOGY COMMENT NORMAL MORPHOLOGY (NORM); WBC MORPHOLOGY COMMENT NORMAL MORPHOLOGY (NORM)
[2018-06-23] MEDS: PANTOPRAZOLE 40 MG TABLET PO SCH (07:51)
[2018-06-23] MEDS: oxyCODONE IR Tab 5 MG TAB PO PRN ×3 (09:14→20:22)
[2018-06-23] MEDS: Multivitamin Tab 1 TAB PO SCH (09:14)
[2018-06-23] MEDS: LISINOPRIL 5 MG TABLET PO SCH (09:14)
[2018-06-23] MEDS: GABAPENTIN 400 MG CAPSULE PO SCH ×3 (09:14→20:23)
[2018-06-23] MEDS: VENLAFAXINE HCL XR 150 MG CAP PO SCH (09:15)
[2018-06-23] MEDS: GlipiZIDE Tab 5 MG TABLET PO SCH ×2 (09:15→20:22)
--- NOTE | 2018-06-23 11:46 | OT.PROG ---
Progress Note Progress Note: S: pt stated that he was in pain today but wanted to go home. O: tx consisted of bed mobility from supine to EOB, ADL task of donning LE pants with use of occupational health rn. A: pt was in pain and had a low grade fever. pt is independent in ADL tasks. P: continue POC
[2018-06-23] MEDS ORDERED: metroNIDAZOLE 500mg (Premix) 500 MG/100 ML BAG IV SCH (13:00)
[2018-06-23] MEDS ORDERED: ACETAMINOPHEN 325 MG TABLET PO PRN ×2 (15:33→15:55)
[2018-06-23] MEDS ORDERED: ceFAZolin Inj 2 GM in Sodium Chloride 0.9% 100 ML IV SCH (16:00)
[2018-06-23] MEDS ORDERED: Insulin Sliding Scale Protocol SUBCUT PRN (16:00)
[2018-06-23] MEDS ORDERED: DEXTROSE 50%-WATER SYRINGE 50 ML SYRINGE IVP PRN (16:00)
[2018-06-23] MEDS ORDERED: DEXTROSE 31 GM GEL PO PRN (16:00)
[2018-06-23] MEDS ORDERED: Glucagon Inj Vial 1 MG/ML VIAL IM PRN (16:00)
--- NOTE | 2018-06-23 16:07 | PDOC(PROG) ---
Date of Service: 06/23/18 Time of Service: 16:01 Interval History: patient seen twice today. initially, fevers abated, had some phlegm with cough earlier, resolved. no chest pain, no SOB, and wound was without erythema. this afternoon, marked increase in serosanguanous non bloody discharge from incision, increased erythema. I reviewed CT and no evidence for pneumonia on my view or by radiology review. has fever. no nausea or vomiting. no urinary complaints. Objective : Data - Labs CBC and BMP: 06/23/18 04:30 06/21/18 04:10 Objective : Exam - General General Appearance: No Acute Distress, Cooperative Additional General Exam Details: Vital Signs - Last Taken Temperature 100.7 F H 06/23/18 15:40 Pulse Rate 107 H 06/23/18 15:40 Respiratory Rate 20 06/23/18 15:40 Blood Pressure 134/85 06/23/18 15:40 Pulse Ox 91 06/23/18 15:40 - Eye Eye Exam: No Scleral Icterus - ENT ENT Exam: Mucous Membranes Moist - Neck Neck Exam: JVP is not Raised - Respiratory Respiratory Exam: Clear to Auscultation - Bilaterally, Breathing Non Labored - Cardiovascular Cardiovascular Exam: RRR, No Murmur, No Clicks, No Gallops, No Rubs, No JVD - GI/Abdominal GI/Abdominal Exam: Normal Bowel Sounds, Non Tender, Non Distended, Soft - Extremities Extremities Exam: No Clubbing Present, No Edema Present, No Cyanosis Present - Back Additional Back Exam Details: incision this AM was without erythema at 1605, developed erythema and marked increase in discharge from incision blochy redness in flank on left side - Neurological Neurological Exam: Alert, Oriented x 3, No Facial Droop, Speech Intact / Clear, Moves All Extremities Equally - Psychiatric Psychiatric Exam: Normal Affect, Normal Mood Assessment and Plan - Patient Problems (1) Postoperative wound infection Current Visit: Yes Status: Acute Code(s): T81.49XA - Infection following a procedure, other surgical site, initial encounter (2) Diabetes mellitus type II, controlled Current Visit: Yes Status: Acute Code(s): E11.9 - Type 2 diabetes mellitus without complications Qualifiers: Diabetes mellitus vermin exterminator insulin use: without skilled nursing use Diabetes mellitus complication status: without complication Qualified Code(s): E11.9 - Type 2 diabetes mellitus without complications (3) History of alcohol abuse Current Visit: No Status: Chronic Code(s): Z87.898 - Personal history of other specified conditions (4) Chronic back pain Current Visit: Yes Status: Chronic Code(s): M54.9 - Dorsalgia, unspecified; G89.29 - Other chronic pain Qualifiers: Back pain location: low back pain Sciatica presence: unspecified whether sciatica present (5) Chronic hepatitis Current Visit: Yes Status: Chronic Code(s): K73.9 - Chronic hepatitis, unspecified (6) Depression Current Visit: Yes Status: Chronic Code(s): F32.9 - Major depressive disorder, single episode, unspecified Qualifiers: Depression Type: other depression Qualified Code(s): F32.89 - Other specified depressive episodes (7) Hepatitis C Current Visit: Yes Status: Chronic Code(s): B19.20 - Unspecified viral hepatitis C without hepatic coma Qualifiers: Viral hepatitis chronicity: chronic Hepatic coma status: without hepatic co ma Qualified Code(s): B18.2 - Chronic viral hepatitis C - Assessment / Plan Additional Assessment/Plan Details: I think the incision is likely the source of fever, will check UA and get ultrasound for DVT. stop rocephin/flagyl start ancef 2 grams IV Q8H check nasal MRSA screen, if positive, will switch to vanco, otherwise, continue with ancef labs in AM discussed with Federica, placed notification to Dr. Hernandez tylenol PRN fever resume home vitamin C check blood sugars, treat as necessary with insulin, check HbA1c
[2018-06-23] MEDS: ACETAMINOPHEN 500 MG TABLET PO PRN (16:32)
[2018-06-23] MEDS: ceFAZolin Inj 2gm (Premix) 2 GM/50 ML BAG IV SCH (16:39)
[2018-06-23 17:04] LABS: HEMOGLOBIN A1C 5.94 % (4.2-6.0)
--- NOTE | 2018-06-23 17:30 | DI ---
VENOUS DOPPLER ULTRASOUND OF BOTH LOWER EXTREMITIES, 06/23/2018 4:01 PM: Clinical History: Postoperative fever. Assessment for source of fever. Previous Exam: None. Technique: 2D real-time imaging and color Doppler ultrasound with compression and augmentation maneuv ers. Deep Venous System: Normal deep venous system from groin to popliteal fossa bilaterally. Superficial Venous System: Normal greater saphenous vein bilaterally. Reading: Negative venous Doppler ultrasound of both lower extremities for deep vein thrombosis.
[2018-06-23] MEDS: Insulin Lispro Flexpen 300 UNIT/3 ML INSULN.PEN SUBCUT SCH ×2 (17:43→20:53)
[2018-06-23 20:45] LABS: BILIRUBIN,URINE NEGATIVE (NEG); CLARITY,URINE CLEAR (CLEAR); COLOR,URINE YELLOW (Y); GLUCOSE, URINE (UA) 250 mg/dL (NEG); OCCULT BLOOD,URINE MODERATE (NEG); PROTEIN,URINE 100 mg/dl (NEG); UROBILINOGEN,URINE 0.2 EU/dL (0.2)
[2018-06-23 20:52] LABS: SQUAMOUS EPITHELIAL CELL,UR FEW; URINE CRYSTALS MANY; URINE SAMPLE TYPE CLEAN CATCH URINE
[2018-06-24] MEDS: traZODone Tab 50 MG TAB PO SCH ×2 (00:17→22:56)
[2018-06-24] MEDS: oxyCODONE IR Tab 5 MG TAB PO PRN ×4 (00:17→19:38)
[2018-06-24] MEDS: ceFAZolin Inj 2gm (Premix) 2 GM/50 ML BAG IV SCH ×4 (00:18→23:01)
[2018-06-24 05:11] LABS: Hematocrit [HCT] 27.4 % (42.0-52.0); Hemoglobin [HGB] 9.2 g/dL (14.0-18.0); MEAN CORPUSCULAR HEMOGLOBIN 29.6 PG (27-31); MEAN CORPUSCULAR HGB CONC 33.6 g/dL (33-37); MEAN CORPUSCULAR VOLUME 88.1 FL (80-90); MEAN PLATELET VOLUME 10.1 FL (7.4-12.2); RED BLOOD COUNT 3.11 10^6/uL (4.70-6.10)
[2018-06-24 05:57] LABS: PLATELET MORPHOLOGY COMMENT NORMAL MORPHOLOGY (NORM); RBC MORPHOLOGY COMMENT NORMAL MORPHOLOGY (NORM); WBC MORPHOLOGY COMMENT NORMAL MORPHOLOGY (NORM)
[2018-06-24 05:58] LABS: BAND NEUTROPHILS % 8 % (0-10); BASOPHILS % (MANUAL) 0 % (0-1); EOSINOPHILS % (MANUAL) 2 % (0-8); METAMYELOCYTES % 0 %; MONOCYTES % (MANUAL) 8 % (0-12); MYELOCYTES % 0 %; NEUTROPHILS % (MANUAL) 65 % (50-80); PROMYELOCYTES % 0 %
[2018-06-24 06:06] LABS: BLOOD UREA NITROGEN 15 mg/dL (7-22); SERUM ALBUMIN 2.8 g/dL (3.5-4.8)
[2018-06-24] MEDS: PANTOPRAZOLE 40 MG TABLET PO SCH (07:09)
[2018-06-24] MEDS: Insulin Lispro Flexpen 300 UNIT/3 ML INSULN.PEN SUBCUT SCH ×4 (07:09→21:04)
--- NOTE | 2018-06-24 07:44 | NEURO.PROG ---
Subjective Post Op Day: 4 Pain Management: PO Jennings Catheter: No Flatus: Yes Diet: Regular Ambulating: Yes Additional Details: Awake and alert, sitting on bedside eating breakfast. Feels better today then yesterday when he was febrile with no appetite. Back pain less then yesterday. Dressing with absorbed drainage, pad of bed with absorbed drainage, all drainage appears serosanganious. Incision/staple line intact. Some mild erythema around mid/lower portion of incision, nurse states incision more erythematous/red yesterday. Multiple dried dark brown sputum noted in the sink. Temperature this morning, 98.9 PLAN: 1.) Keep inpatient for another post-operative day/evening since febrile up to 102.8 less then 24 hours ago. 2.) Continue to monitor incisional drainage. 3.) Continue post-operative pain control. 4.) Continue to mobilize. Objective : Data - Labs CBC and BMP: 06/24/18 04:25 06/24/18 04:25 - Vital Signs Vital Signs and I&O: Vital Signs - Last Taken Temperature 98.9 F 06/24/18 06:49 Pulse Rate 91 06/24/18 06:49 Respiratory Rate 18 06/24/18 06:49 Blood Pressure 117/69 06/24/18 06:49 Pulse Ox 96 06/24/18 06:49 Intake and Output (24hr x 4 totals) 06/22/18 06/23/18 06/24/18 06/25/18 05:59 05:59 05:59 05:59 Intake Total 2475 / 2475 1020 / 1020 1032 / 1032 550 / 550 Output Total 1725 / 1725 2220 / 2220 975 / 975 Balance 750 / 750 -1200 / -1200 57 / 57 550 / 550
[2018-06-24] MEDS: ASCORBIC ACID Chewable 500 MG TABLET PO SCH (09:04)
[2018-06-24] MEDS: GlipiZIDE Tab 5 MG TABLET PO SCH ×2 (09:04→21:02)
[2018-06-24] MEDS: Multivitamin Tab 1 TAB PO SCH (09:04)
[2018-06-24] MEDS: LISINOPRIL 5 MG TABLET PO SCH (09:04)
[2018-06-24] MEDS: GABAPENTIN 400 MG CAPSULE PO SCH ×3 (09:04→21:01)
[2018-06-24] MEDS: VENLAFAXINE HCL XR 150 MG CAP PO SCH (09:04)
--- NOTE | 2018-06-24 10:35 | OT.PROG ---
Progress Note Progress Note: S: pt stated that he was doing okay and that his pain was less than yesterday. O: tx consisted of bed mobility from supine to EOB independently, donning of brace with MIN A, donning of robe with MIN A, functional ambulation with walker and CGA for safety x 300'. A: pt tolerated session well. pt was a little stiff but overall doing well. P: continue POC
[2018-06-24] MEDS ORDERED: cefTRIAXone Inj 2 GM in Sodium Chloride 0.9% 100 ML IV SCH (12:00)
--- NOTE | 2018-06-24 13:13 | PDOC(PROG) ---
Date of Service: 06/24/18 Time of Service: 10:45 Interval History: no chest pain, no SOB, no nausea or vomiting having fevers but better this AM productive cough has improved back pain improving, but still present per patient. Objective : Data - Labs CBC and BMP: 06/24/18 04:25 06/24/18 04:25 Additional Lab Results: Selected Entries 06/23/18 21:00 06/24/18 06:41 06/24/18 11:00 Finger Stick Blood Glucose 162 H 117 H 148 H - Imaging Ultrasound Status: Report Reviewed by Me (US of lower extremities negative for DVT) Objective : Exam - General General Appearance: No Acute Distress, Mild Distress Additional General Exam Details: Vital Signs - Last Taken Temperature 99.2 F 06/24/18 11:03 Pulse Rate 83 06/24/18 11:03 Respiratory Rate 18 06/24/18 11:03 Blood Pressure 108/70 06/24/18 11:03 Pulse Ox 95 06/24/18 11:03 Selected Entries 06/23/18 16:32 06/24/18 04:10 06/24/18 06:49 Temperature 102.8 F H 100.0 F H 98.9 F 06/24/18 11:03 Temperature 99.2 F - Eye Eye Exam: No Scleral Icterus - ENT ENT Exam: Mucous Membranes Moist - Neck Neck Exam: JVP is not Raised - Respiratory Respiratory Exam: Clear to Auscultation - Bilaterally, Breathing Non Labored - Cardiovascular Cardiovascular Exam: RRR, No Murmur, No Clicks, No Gallops, No Rubs, No JVD - GI/Abdominal GI/Abdominal Exam: Normal Bowel Sounds, Non Tender, Non Distended, Soft - Extremities Extremities Exam: No Clubbing Present, No Edema Present, No Cyanosis Present - Neurological Neurological Exam: Alert, Oriented x 3, No Facial Droop, Speech Intact / Clear, Moves All Extremities Equally Assessment and Plan - Patient Problems (1) Postoperative fever Current Visit: Yes Status: Acute Code(s): R50.82 - Postprocedural fever (2) Postoperative wound infection Current Visit: Yes Status: Acute Code(s): T81.49XA - Infection following a procedure, other surgical site, initial encounter (3) Diabetes mellitus type II, controlled Current Visit: Yes Status: Acute Code(s): E11.9 - Type 2 diabetes mellitus without complications Qualifiers: Diabetes mellitus meterman insulin use: without shelter use Diabetes mellitus complication status: without complication Qualified Code(s): E11.9 - Type 2 diabetes mellitus without complications (4) History of alcohol abuse Current Visit: No Status: Chronic Code(s): Z87.898 - Personal history of other specified conditions (5) Chronic back pain Current Visit: Yes Status: Chronic Code(s): M54.9 - Dorsalgia, unspecified; G89.29 - Other chronic pain Qualifiers: Back pain location: low back pain Sciatica presence: unspecified whether sciatica present (6) Chronic hepatitis Current Visit: Yes Status: Chronic Code(s): K73.9 - Chronic hepatitis, unspecified (7) Depression Current Visit: Yes Status: Chronic Code(s): F32.9 - Major depressive disorder, single episode, unspecified Qualifiers: Depression Type: other depression Qualified Code(s): F32.89 - Other spe cified depressive episodes (8) Hepatitis C Current Visit: Yes Status: Chronic Code(s): B19.20 - Unspecified viral hepatitis C without hepatic coma Qualifiers: Viral hepatitis chronicity: chronic Hepatic coma status: without hepatic coma Qualified Code(s): B18.2 - Chronic viral hepatitis C (9) Status post lumbar surgery Current Visit: Yes Status: Acute Code(s): Z98.890 - Other specified postprocedural states - Assessment / Plan Additional Assessment/Plan Details: thus far, no evidence for pneumonia, UTI or bacteremia as source of fever. Patient negative for PE and LE DVT bilaterally as explanation of fever. wound with erythema, but no growth on drainiage--drainage likely all serosanguanous possible early left flank cellulitis?? will order IS continue ancef, day #2, labs in AM tylenol PRN fever.
[2018-06-24] MEDS: CYCLOBENZAPRINE 10 MG TABLET PO PRN (15:07)
[2018-06-24] MEDS: ACETAMINOPHEN 500 MG TABLET PO PRN (19:37)
[2018-06-25 04:46] LABS: Hematocrit [HCT] 25.6 % (42.0-52.0); Hemoglobin [HGB] 8.5 g/dL (14.0-18.0); MEAN CORPUSCULAR HEMOGLOBIN 28.9 PG (27-31); MEAN CORPUSCULAR HGB CONC 33.2 g/dL (33-37); MEAN CORPUSCULAR VOLUME 87.1 FL (80-90); MEAN PLATELET VOLUME 9.8 FL (7.4-12.2); RED BLOOD COUNT 2.94 10^6/uL (4.70-6.10)
[2018-06-25 04:51] LABS: BLOOD UREA NITROGEN 15 mg/dL (7-22)
[2018-06-25 05:05] LABS: PLATELET MORPHOLOGY COMMENT NORMAL MORPHOLOGY (NORM); WBC MORPHOLOGY COMMENT NORMAL MORPHOLOGY (NORM)
[2018-06-25 05:06] LABS: BAND NEUTROPHILS % 0 % (0-10); BASOPHILS % (MANUAL) 0 % (0-1); EOSINOPHILS % (MANUAL) 0 % (0-8); MONOCYTES % (MANUAL) 9 % (0-12); NEUTROPHILS % (MANUAL) 69 % (50-80); RBC MORPHOLOGY COMMENT SEE COMMENTS (NORM)
[2018-06-25] MEDS: oxyCODONE IR Tab 5 MG TAB PO PRN ×4 (05:49→19:13)
[2018-06-25] MEDS: PANTOPRAZOLE 40 MG TABLET PO SCH (06:52)
[2018-06-25] MEDS: Insulin Lispro Flexpen 300 UNIT/3 ML INSULN.PEN SUBCUT SCH ×4 (07:08→20:19)
[2018-06-25] MEDS: ceFAZolin Inj 2gm (Premix) 2 GM/50 ML BAG IV SCH ×3 (07:50→23:02)
[2018-06-25] MEDS: ASCORBIC ACID Chewable 500 MG TABLET PO SCH (09:58)
[2018-06-25] MEDS: Multivitamin Tab 1 TAB PO SCH (09:58)
[2018-06-25] MEDS: GlipiZIDE Tab 5 MG TABLET PO SCH ×2 (09:58→20:18)
[2018-06-25] MEDS: VENLAFAXINE HCL XR 150 MG CAP PO SCH (09:58)
[2018-06-25] MEDS: LISINOPRIL 5 MG TABLET PO SCH (09:58)
[2018-06-25] MEDS: metFORMIN 500 MG TABLET PO SCH ×2 (09:58→20:19)
[2018-06-25] MEDS: GABAPENTIN 400 MG CAPSULE PO SCH ×3 (09:59→20:19)
--- NOTE | 2018-06-25 11:26 | OT.PROG ---
Progress Note Progress Note: S: pt stated that his pain was at an 8/10 but was feeling okay. O: tx consisted of seated ADL tasks of dressing. pt completed UE dressing independently, LE Dressing with paid search manager and sock aide independently, donning of back brace independently, STS x1. A: pt is independent in all ADL tasks. pt has meet all OT goals. P: pt is discharged from OT services due to reaching all OT goals.
--- NOTE | 2018-06-25 12:14 | PT.PROG ---
Progress Note Progress Note: S. Patient stated that he is feeling alright this morning, he agreed to go for a walk. O. Patient ambulated 200 feet around the nurses station and back to his room where he was left with alarm and call light. A. Patient tolerated ambulation well. He has met all goals at this time. P. Continue POC until Discharge.
--- NOTE | 2018-06-25 12:31 | PDOC(PROG) ---
Date of Service: 06/25/18 Time of Service: 10:00 Interval History: doing well this AM, pain better controlled no chest pain and no SOB no nausea or vomiting denies constipation Objective : Data - Labs CBC and BMP: 06/25/18 04:05 06/25/18 04:05 Objective : Exam - General General Appearance: No Acute Distress, Cooperative Additional General Exam Details: Vital Signs - Last Taken Temperature 99 F 06/25/18 11:03 Pulse Rate 78 06/25/18 11:03 Respiratory Rate 17 06/25/18 11:03 Blood Pressure 123/72 06/25/18 06:46 Pulse Ox 95 06/25/18 11:03 Selected Entries 06/24/18 19:37 Temperature 100.5 F H - Eye Eye Exam: No Scleral Icterus - ENT ENT Exam: Mucous Membranes Moist - Neck Neck Exam: JVP is not Raised - Respiratory Respiratory Exam: Clear to Auscultation - Bilaterally, Breathing Non Labored - Cardiovascular Cardiovascular Exam: RRR, No Murmur, No Clicks, No Gallops, No Rubs, No JVD - GI/Abdominal GI/Abdominal Exam: Normal Bowel Sounds, Non Tender, Non Distended, Soft - Extremities Extremities Exam: No Clubbing Present, No Edema Present, No Cyanosis Present - Back Additional Back Exam Details: incision, dressing and serosanguanous drainage all improved. some erythema at bottom edges of wound, but overall, erythema along wound nearly resolved, significantly improved - Neurological Neurological Exam: Alert, Oriented x 3, Normal Gait (with walker and back brace), No Facial Droop, Speech Intact / Clear, Moves All Extremities Equally Assessment and Plan - Patient Problems (1) Postoperative fever Current Visit: Yes Status: Acute Code(s): R50.82 - Postprocedural fever (2) Postoperative wound infection Current Visit: Yes Status: Acute Code(s): T81.49XA - Infection following a procedure, other surgical site, initial encounter (3) Diabetes mellitus type II, controlled Current Visit: Yes Status: Acute Code(s): E11.9 - Type 2 diabetes mellitus without complications Qualifiers: Diabetes mellitus jail insulin use: without ferry terminal agent use Diabetes mellitus complication status: without complication Qualified Code(s): E11.9 - Type 2 diabetes mellitus without complications (4) History of alcohol abuse Current Visit: No Status: Chronic Code(s): Z87.898 - Personal history of other specified conditions (5) Chronic back pain Current Visit: Yes Status: Chronic Code(s): M54.9 - Dorsalgia, unspecified; G89.29 - Other chronic pain Qualifiers: Back pain location: low back pain Sciatica presence: unspecified whether sciatica present (6) Chronic hepatitis Current Visit: Yes Status: Chronic Code(s): K73.9 - Chronic hepatitis, unspecified (7) Depression Current Visit: Yes Status: Chronic Code(s): F32.9 - Major depressive disorder, single episode, unspecified Qualifiers: Depression Type: other depression Qualified Code(s): F32.89 - Other specified depressive episodes (8) Hepatitis C Current Visit: Yes Status: Chronic Code(s): B19.20 - Unspecified viral hepatitis C without hepatic coma Qualifiers: Viral hepatitis chronicity: chronic Hepatic coma status: without hepatic coma Qualified Code(s): B18.2 - Chronic viral hepatitis C (9) Status post lumbar surgery Current Visit: Yes Status: Acute Code(s): Z98.890 - Other specified postprocedural states - Assessment / Plan Additional Assessment/Plan Details: I would recommend we monitor for another night--would like to see patient stay fever free 24 hours prior to discharge, but overall, fever curve is improving! continue ancef. would recommend keflex at discharge 1000 mg PO TID for a total of 10-14 days of antibiotics no changes to other primary medical problems from hospitalist perspective.
--- NOTE | 2018-06-25 16:21 | PT.PROG ---
Progress Note Progress Note: S. Patient stated that he would like to go for a walk. O. Patient ambulated 350 feet around the nurses station and back to his room, and was left in his chair with alarm and call light. A. Patient tolerated ambulation well, he was able to ambulate with stand by guard assist. Patient has met all therapy goals at this time. P. Continue POC until Discharge.
[2018-06-25] MEDS: traZODone Tab 50 MG TAB PO SCH (22:43)
[2018-06-25] MEDS: ACETAMINOPHEN 500 MG TABLET PO PRN (23:14)
[2018-06-26] MEDS: oxyCODONE IR Tab 5 MG TAB PO PRN ×4 (04:43→15:05)
--- NOTE | 2018-06-26 06:42 | NEURO.PROG ---
Subjective Post Op Day: 6 Pain Management: PO Diet: Regular Ambulating: Yes Additional Details: Mr Painting is awake and alert, afebrile and wanting to go home. His Prevena dressing is intact and functioning well. He has passed PT milestones and received post op teaching to including the Prevena dressing and activity. He has a post op appointment in [place] with Dr. Hernandez. From a neuro standpoint he is ready for discharge to home. Plan per Dr. Daniels. Objective : Data - Labs CBC and BMP: 06/25/18 04:05 06/25/18 04:05 - Vital Signs Vital Signs and I&O: Vital Signs - Last Taken Temperature 98.5 F 06/26/18 06:34 Pulse Rate 75 06/26/18 06:34 Respiratory Rate 17 06/26/18 06:34 Blood Pressure 102/57 06/26/18 06:34 Pulse Ox 95 06/26/18 06:34 Intake and Output (24hr x 4 totals) 06/24/18 06/25/18 06/26/18 06/27/18 05:59 05:59 05:59 05:59 Intake Total 1032 / 1032 4030 / 4030 3255 / 3255 500 / 500 Output Total 975 / 975 1175 / 1175 1999 / 1999 Balance 57 / 57 2855 / 2855 1255 / 1255 500 / 500
[2018-06-26] MEDS: Insulin Lispro Flexpen 300 UNIT/3 ML INSULN.PEN SUBCUT SCH ×2 (07:34→11:11)
[2018-06-26] MEDS: PANTOPRAZOLE 40 MG TABLET PO SCH (07:34)
[2018-06-26] MEDS: CYCLOBENZAPRINE 10 MG TABLET PO PRN (07:36)
[2018-06-26] MEDS: ceFAZolin Inj 2gm (Premix) 2 GM/50 ML BAG IV SCH ×2 (08:43→15:06)
[2018-06-26] MEDS: ASCORBIC ACID Chewable 500 MG TABLET PO SCH (08:43)
[2018-06-26] MEDS: Multivitamin Tab 1 TAB PO SCH (08:43)
[2018-06-26] MEDS: metFORMIN 500 MG TABLET PO SCH (08:43)
[2018-06-26] MEDS: GABAPENTIN 400 MG CAPSULE PO SCH ×2 (08:44→15:05)
[2018-06-26] MEDS: GlipiZIDE Tab 5 MG TABLET PO SCH (08:44)
[2018-06-26] MEDS: LISINOPRIL 5 MG TABLET PO SCH (08:44)
[2018-06-26] MEDS: VENLAFAXINE HCL XR 150 MG CAP PO SCH (08:46)
--- NOTE | 2018-06-26 10:13 | DCSUMMARY ---
Hospitalization Summary Admit Date: 06/20/2018 Discharge Date: 06/26/18 Primary Diagnosis:: status post lumbar surgery Hospital Course: This very pleasant 4-year-old male with long-standing back pain, who presented on 06/20/[address] Hernandez for lumbar surgery. See his surgical notes regarding the procedure performed. The hospital service was consult to help address medical issues. The patient's postoperative recovery from a physical therapy, occupational th erapy, and pain control standpoint was fairly routine. The patient did develop fevers. An extensive workup was done, blood cultures were negative, no evidence for pneumonia, and no evidence for urinary tract infection. The skin along the wound did appear reddened and we started the patient on Ancef and the patient responded well to this. He was afebrile over the last 24-36 hours of the hospital stay. He is been on Ancef for a total of 4 days. He will finish his course of Keflex over the next 10 days for total of 14 days of antibiotics. We also considered the possibility of venous thrombus embolism as a source for the fever. CTA was negative for pulmonary emboli, and bilateral lower extremity Dopplers were negative for DVT. He was tachycardic at the time of his fevers putting this in the differential. There were no exacerbations of any acute primary medical problems during the hospital stay. Blood sugars were well controlled during the hospital stay. Today, back pain is better than first day postop. It has been steadily improving. No chest pain and no shortness breath. No nausea or vomiting. No fevers today. He would like to go home. Assessment and Plan: 1. As per discharge assessments noted 2. Disposition: Patient is discharged home. 3. Condition on discharge, stable and improved. 4. Diet: regular diet 5. Activities: resume activities as per neurosurgery and physical therapy instructions 6. Follow-Up: 1. See primary care physician within 5-7 days 2. Follow-up as already been arranged with Dr. Hernandez 7. Medications at the Time of Discharge: Home Medications Medication Instructions Recorded Confirmed ascorbic acid (vitamin C) 500 mg mg PO 11/07/17 03/06/18 capsule aspirin 325 mg tablet 325 mg PO QDAY 11/07/17 06/19/18 biotin 5 mg capsule 5 mg PO QDAY 11/07/17 06/19/18 gabapentin 800 mg tablet 800 mg PO TID tab 11/07/17 06/19/18 glipizide 5 mg tablet 5 mg PO BID 11/07/17 06/19/18 lisinopril 2.5 mg tablet 2.5 mg PO QDAY 11/07/17 06/19/18 mecobalamin (vitamin B12) 1,000 1,000 mcg SL QDAY 11/07/17 06/19/18 mcg disintegrating tablet,sublingual metformin 1,000 mg tablet 1,000 mg PO BID 11/07/17 06/19/18 multivitamin,cp-irbx-vtjbohaj 1 tab PO QDAY 11/07/17 06/19/18 tablet trazodone 100 mg tablet 200 mg PO QDAY 11/07/17 06/19/18 venlafaxine ER 150 mg 150 mg PO QDAY 11/07/17 06/19/18 capsule,extended release 24 hr Cyclobenzaprine HCl [Flexeril] 5 - 10 mg PO TID PRN #60 tab 06/22/18 oxyCODONE IR Tab [OxyIR Tab] 5 - 10 mg PO Q4H PRN #60 tab 06/22/18 Cephalexin [Keflex] 1,000 mg PO TID #60 cap 06/26/18 8. Time, care, counseling and coordination of care for this discharge is less than 30 minutes. Exam - Vitals Vital Signs: Vital Signs Temperature 98.5 F Temperature Source Temporal Artery Scan Pulse Rate [Pulse Oximeter] 75 Pulse Rate 105 Respiratory Rate 17 Blood Pressure [Right Arm] 120/64 Blood Pressure [Left Arm] 102/57 Blood Pressure 130/73 Pulse Ox 95 Oxygen Flow Rate 2 Oxygen Delivery Method Room Air Height 5 ft 9 in Weight 190 lb 9.6 oz - General General Appearance: No Acute Distress, Cooperative - Eye Eye Exam: POSITIVE: No Scleral Icterus - ENT ENT Exam: POSITIVE: Mucous Membranes Moist - Neck Neck Exam: JVP is not Raised - Respiratory Respiratory Exam: POSITIVE: Clear to Auscultation - Bilaterally, Breathing Non Labored - Cardiovascular Cardiovascular Exam: POSITIVE: RRR, No Murmur, No Clicks, No Gallops, No Rubs, No JVD - GI/Abdominal GI/Abdominal Exam: POSITIVE: Normal Bowel Sounds, Non Tender, Non Distended, Soft - Extremities Extremities Exam: POSITIVE: No Clubbing Present, No Edema Present, No Cyanosis Present - Neurological Neurological Exam: POSITIVE: Alert, Oriented x 3, No Facial Droop, Speech Intact / Clear, Moves All Extremities Equally Data Peritnent Studies: 06/21/18 06/23/18 06/24/18 04:10 20:42 04:25 WBC 13.66 H Hgb Hct Plt Count Neutrophils % (Manual) Sodium Potassium Chloride Carbon Dioxide Anion Gap BUN Creatinine Estimated GFR BUN/Creatinine Ratio Glucose Calculated Osmolality Calcium AST 54 ALT 38 Alkaline Phosphatase 46 Total Protein 5.0 L Albumin 2.8 L Globulin 2.2 L Albumin/Globulin Ratio 1.20 L Ur Culture Indicated? Culture not set 06/25/18 06/25/18 04:05 04:05 WBC 9.30 Hgb 8.5 L Hct 25.6 L Plt Count 255 Neutrophils % (Manual) 69 Sodium 138 Potassium 3.7 L Chloride 99 Carbon Dioxide 28 Anion Gap 11 BUN 15 Creatinine 1.0 Estimated GFR > 60 BUN/Creatinine Ratio 15.00 Glucose 123 H Calculated Osmolality 287.0 Calcium 7.8 L AST ALT Alkaline Phosphatase Total Protein Albumin Globulin Albumin/Globulin Ratio Ur Culture Indicated? Procedures: [address] [facility] [place] [address] PH: DD: [phone] FAX: [phone] ~DIAGNOSTIC IMAGING REPORT~ Patient: Daniele Painting : 1960 Sex: M Age: 58 Exam Name: KHUSHBOO Dasilva/JOANNA Rincon Exam Date: 06/23/18 Report # : [id number] CPT Code: 80952 EMR/MR #: [id number] Ordering: HOLLAND VANEGAS Admiting: Dr. Donnie Hernandez MD. Primary: NONE,NONE Attending: Dr. Donnie Hernandez MD. Signed VENOUS DOPPLER ULTRASOUND OF BOTH LOWER EXTREMITIES, 06/23/2018 4:01 PM: Clinical History: Postoperative fever. Assessment for source of fever. Previous Exam: None. Technique: 2D real-time imaging and color Doppler ultrasound with compression and augmentation maneuvers. Deep Venous System: Normal deep venous system from groin to popliteal fossa bilaterally. Superficial Venous System: Normal greater saphenous vein bilaterally. Reading: Negative venous Doppler ultrasound of both lower extremities for deep vein thrombosis. Dictated By: 06/23/18 1724 SADIA BUTLER MD. Signed By: 06/23/18 1730 SADIA BUTLER MD. [address] [facility] [place] [address] PH: DD: [phone] FAX: [phone] ~DIAGNOSTIC IMAGING REPORT~ Patient: Daniele Painting : 1960 Sex: M Age: 58 Exam Name: CT CTA Chest Non-Coronary [facility] Exam Date: 06/22/18 Report # : [id number] CPT Code: 74532 EMR/MR #: [id number] Ordering: MAGGY LLOYD Admiting: Dr. Donnie Hernandez MD. Primary: NONE,NONE Attending: Dr. Donnie Hernandez MD. Signed EXAM: CT Angiography Chest With Intravenous Contrast CLINICAL HISTORY: ITS.REASON atelectasis Physician Notes: Tech Comments: TECHNIQUE: Axial computed tomographic angiography images of the chest with intravenous contrast using pulmonary embolism protocol. MIP reconstructed images were created and reviewed. COMPARISON: No relevant prior studies available. FINDINGS: Pulmonary arteries: No evidence of pulmonary embolism. Aorta: No aortic aneurysm or dissection. Lungs: Mild basilar densities, likely atelectasis. Mild peribronchial thickening. Pleural space: No significant effusion. No pneumothorax. Heart: Unremarkable. Bones/joints: No acute fracture. Soft tissues: Unremarkable as visualized. Lymph nodes: Unremarkable. Gallbladder and bile ducts: Cholecystectomy. Spleen: Mild splenomegaly. IMPRESSION: 1. No evidence of PE or aortic dissection. 2. Mild basilar densities, likely atelectasis. Dictated By: Sonia Hudson MD Signed By: 06/22/18 2329 Sonia Hudson MD Patient Problems - Patient Problem List (1) Postoperative fever Current Visit: Yes Status: Acute Code(s): R50.82 - Postprocedural fever Category: Medical (2) Postoperative wound infection Current Visit: Yes Status: Acute Code(s): T81.49XA - Infection following a procedure, other surgical site, initial encounter Category: Medical (3) Diabetes mellitus type II, controlled Current Visit: Yes Status: Acute Code(s): E11.9 - Type 2 diabetes mellitus without complications Qualifiers: Diabetes mellitus intermediate manager insulin use: without intermediate manager use Diabetes mellitus complication status: without complication Qualified Code(s): E11.9 - Type 2 diabetes mellitus without complications Category: Medical (4) History of alcohol abuse Current Visit: No Status: Chronic Code(s): Z87.898 - Personal history of other specified conditions Category: Medical (5) Chronic back pain Current Visit: Yes Status: Chronic Code(s): M54.9 - Dorsalgia, unspecified; G89.29 - Other chronic pain Qualifiers: Back pain location: low back pain Sciatica presence: unspecified whether sciatica present Category: Medical (6) Chronic hepatitis Current Visit: Yes Status: Chronic Code(s): K73.9 - Chronic hepatitis, unspecified Category: Medical (7) Depression Current Visit: Yes Status: Chronic Code(s): F32.9 - Major depressive disorder, single episode, unspecified Qualifiers: Depression Type: other depression Qualified Code(s): F32.89 - Other specified depressive episodes Category: Medical (8) Hepatitis C Current Visit: Yes Status: Chronic Code(s): B19.20 - Unspecified viral hepatitis C without hepatic coma Qualifiers: Viral hepatitis chronicity: chronic Hepatic coma status: without hepatic coma Qualified Code(s): B18.2 - Chronic viral hepatitis C Category: Medical (9) Status post lumbar surgery Current Visit: Yes Status: Acute Code(s): Z98.890 - Other specified postprocedural states Category: Surgical
[2018-06-26 11:05] VITALS: BP 117/55; RESP 18; TEMP 98.3; O2SAT 96
--- NOTE | 2018-06-26 11:24 | PT.PROG ---
Progress Note Progress Note: Patient has met all goals at this time and is cleared from therapy.
== END 2018-06-26 15:50 | disposition home or self-care (01) | DRG 455 ==
LOC: MED/SURG 05:48
PROVIDERS: ADMIT Neurological Surgery; ATTEND Neurological Surgery

== ENCOUNTER 2018-07-25 11:17 | Inpatient (IN) ==
[~2018-07-25 11:17] MED LIST: LIDOCAINE W/ SODIUM BICARB 0.5 ML SYR SUBD ONE; Lactated Ringers 1,000 ML PRIMARY IV ONE; Nasal Sanitizer POPSWAB ampule 3 AMP (Nozin) PREOP DOSE ENOS SCH; ceFAZolin Inj 2gm (Premix) 2 GM/50 ML BAG IV ONE
[2018-07-25 11:51] LABS: BASOPHILS # (AUTO) 0.01 10*3/UL; BASOPHILS % (AUTO) 0.1 % (0-1); EOSINOPHILS # (AUTO) 0.22 10*3/UL; EOSINOPHILS % (AUTO) 3.2 % (0-8); Hemoglobin [HGB] 11.4 g/dL (14.0-18.0); LYMPHOCYTES # (AUTO) 1.65 10*3/uL; MEAN CORPUSCULAR HEMOGLOBIN 27.7 PG (27-31); MEAN CORPUSCULAR HGB CONC 31.7 g/dL (33-37); MEAN CORPUSCULAR VOLUME 87.4 FL (80-90); MEAN PLATELET VOLUME 9.1 FL (7.4-12.2); MONOCYTES # (AUTO) 0.81 10*3/UL (0.3-0.8); MONOCYTES % (AUTO) 11.8 % (5-15); NEUTROPHILS # (AUTO) 4.13 10*3/UL; NEUTROPHILS % (AUTO) 60.4 % (50-80); RED BLOOD COUNT 4.12 10^6/uL (4.70-6.10)
[2018-07-25 11:53] LABS: BILIRUBIN,URINE NEGATIVE (NEG); CLARITY,URINE CLEAR (CLEAR); COLOR,URINE YELLOW (Y); GLUCOSE, URINE (UA) NEGATIVE (NEG); OCCULT BLOOD,URINE NEGATIVE (NEG); PH,URINE 5.5 (5.0-8.5); PROTEIN,URINE 30 mg/dl (NEG); UROBILINOGEN,URINE 0.2 EU/dL (0.2)
[2018-07-25 11:53] LABS: PLATELET MORPHOLOGY COMMENT NORMAL MORPHOLOGY (NORM); RBC MORPHOLOGY COMMENT NORMAL MORPHOLOGY (NORM); WBC MORPHOLOGY COMMENT NORMAL MORPHOLOGY (NORM)
[2018-07-25 11:58] LABS: RBC,URINE 0 /hpf; SQUAMOUS EPITHELIAL CELL,UR RARE; URINE SAMPLE TYPE CLEAN CATCH URINE; URINE SPECIFIC GRAVITY - MAN 1.028
[2018-07-25 12:00] LABS: BLOOD UREA NITROGEN 12 mg/dL (7-22); BUN/CREATININE RATIO 13.33 (6-20); SERUM ALBUMIN 4.1 g/dL (3.5-4.8)
[2018-07-25] MEDS ORDERED: ceFAZolin Inj 2gm (Premix) 2 GM/50 ML BAG IV ONE (12:18)
[2018-07-25] MEDS ORDERED: Lactated Ringers 1,000 ML PRIMARY IV ONE ×2 (12:19→15:10)
[2018-07-25] MEDS ORDERED: LIDOCAINE W/ SODIUM BICARB 0.5 ML SYR ONE (12:19)
[2018-07-25] MEDS ORDERED: MIDAZOLAM HCL 2 MG/2 ML VIAL ONE (12:59)
[2018-07-25] MEDS ORDERED: KETAMINE 100 MG/1 ML - 5 ML ONE (12:59)
[2018-07-25] MEDS ORDERED: fentaNYL Inj 100 MCG/2 ML VIAL ONE (12:59)
[2018-07-25] MEDS ORDERED: PROPOFOL 10 MG/1 ML (200 MG/20 ML) VIAL IV ONE (13:02)
[2018-07-25] MEDS ORDERED: ROCURONIUM 10 MG/1 ML - 5 ML VIAL IVP ONE (13:04)
[2018-07-25] MEDS ORDERED: Sodium Chloride 0.9% vial 30 ML ONE (14:01)
[2018-07-25] MEDS ORDERED: BACITRACIN 50,000 UNIT VIAL IRRIG ONE (14:01)
[2018-07-25] MEDS ORDERED: Gentamicin Inj 40 MG/ML VIAL ONE (14:01)
[2018-07-25] MEDS ORDERED: Vancomycin Inj 1gm vial ONE (14:01)
[2018-07-25] MEDS ORDERED: BUPIVACAINE 0.25% W/ EPI - 10 ML VIAL ONE (14:02)
[2018-07-25] MEDS ORDERED: HYDROmorphone 2 MG/1 ML ONE (15:39)
[2018-07-25] MEDS ORDERED: ONDANSETRON 4 MG/2 ML VIAL ONE (16:47)
[2018-07-25] MEDS ORDERED: KETOROLAC 30 MG/1 ML VIAL ONE (16:47)
[2018-07-25] MEDS ORDERED: MORPHINE SULFATE 2 MG/1 ML IVP PRN (17:16)
[2018-07-25] MEDS ORDERED: Meperidine Inj 50 MG/ML CARPUJECT IVP PRN (17:16)
[2018-07-25] MEDS ORDERED: ONDANSETRON 4 MG/2 ML VIAL IVP PRN ×2 (17:16→18:31)
[2018-07-25] MEDS ORDERED: fentaNYL Inj 100 MCG/2 ML VIAL IVP PRN (17:16)
[2018-07-25] MEDS ORDERED: LIDOCAINE W/ SODIUM BICARB 0.5 ML SYR SUBD PRN (17:16)
--- NOTE | 2018-07-25 17:16 | CRNA.PROGR ---
Anesthesia Time - Procedure/Recovery Time Start Date: 07/25/18 End Date: 07/25/18 Anesthesia : Time In: 14:13 Anesthesia : Time Out: 17:12 Anesthesia : Total Time: 179 - Total Anesthesia Time Total Anesthesia Time (minutes): 179 - Other Weight: 86.727 kg Height: 5 ft 9 in Body Mass Index (BMI): 28.2 Physical Status: P3 Anesthesia Type: General Anesthesia : ET
--- NOTE | 2018-07-25 17:18 | CRNA.PROGR ---
Anesthesia Recovery Phase I - Post Anesthesia Evaluation Patient's Condition on Arrival in Phase I: Stable (sleeping) Pain Level: 0
[2018-07-25] MEDS ORDERED: Lactated Ringers 1,000 ML PRIMARY IV SCH (17:30)
[2018-07-25] MEDS ORDERED: cefTRIAXone Inj 2 GM in Sodium Chloride 0.9% 100 ML IV SCH ×2 (17:30→19:00)
[2018-07-25] MEDS ORDERED: Vancomycin-PHA to Dose IV SCH ×2 (17:30→18:31)
[2018-07-25] MEDS: HYDROmorphone 2 MG/1 ML IVP PRN ×3 (17:32→17:48)
[2018-07-25] MEDS ORDERED: MAGNESIUM CITRATE 296 ML SOLUTION PO PRN (18:31)
[2018-07-25] MEDS ORDERED: MAGNESIUM 400 MG/5 ML - 30 ML (MILK OF MAGNESIA) PO PRN (18:31)
[2018-07-25] MEDS ORDERED: Ondansetron ODT Tab 4 MG TAB PO PRN (18:31)
[2018-07-25] MEDS ORDERED: MORPHINE SULFATE 4 MG/1 ML IVP PRN (18:31)
[2018-07-25] MEDS ORDERED: Fleet Enema 133ml RECTAL PRN (18:31)
[2018-07-25] MEDS ORDERED: PROMETHAZINE 25 MG/1 ML VIAL IM PRN (18:31)
[2018-07-25] MEDS ORDERED: Prochlorperazine Edisylate Inj 10mg/2ml vial IVP PRN (18:31)
[2018-07-25] MEDS ORDERED: BISACODYL 5 MG TABLET PO PRN (18:31)
[2018-07-25] MEDS ORDERED: DIAZEPAM 10 MG/2 ML (5 MG/1 ML) CARPUJECT IVP PRN (18:31)
[2018-07-25] MEDS ORDERED: DIAZEPAM 10 MG TABLET PO PRN (18:31)
[2018-07-25] MEDS: cefTRIAXone Inj 2 GM in Sodium Chloride 0.9% 100 ML IV SCH (19:54)
[2018-07-25] MEDS: oxyCODONE/APAP 10/325 Tab 1 EACH TAB PO PRN (20:16)
[2018-07-25] MEDS: metFORMIN 500 MG TABLET PO SCH (21:09)
[2018-07-25] MEDS: GlipiZIDE Tab 5 MG TABLET PO SCH (21:09)
[2018-07-25] MEDS: GABAPENTIN 400 MG CAPSULE PO SCH (21:11)
[2018-07-25] MEDS: DOCUSATE 100 MG CAPSULE PO PRN (21:11)
--- NOTE | 2018-07-25 21:27 | GEN.OPNOTE ---
Operative Note Surgery Date: 07/25/18 Preoperative Diagnosis: 1.) Post-operative lumbar surgical site dehiscence and drainage. 2.) Status post L4-S1 interbody and posterolateral fusion one month prior. Postoperative Diagnosis: 1.) Post-operative lumbar surgical site dehiscence and drainage. 2.) Status post L4-S1 interbody and posterolateral fusion one month prior. Procedure: Complex irrigation and debridement of superficial and deep lumbar surgical site measuring approximately 20 cm in length with ellipsing out non- viable skin edges and tissue and primary reclosure of surgical site over two medium Hemovac drains with the placement of retention sutures in the caudal aspect of the incision and dressing of the incision with a Prevena suction dressing. (CPT code: 50507) Estimated Blood Loss (mL): 150 Fluids: See anesthesia record Pathology: Cultures, superficial and deep sent to the laboratory for analysis Indications: Mr. Painting is a 58 year old gentleman status post a L4-5, L5-S1 transforaminal lumbar interbody fusion and L4-S1 posterolateral instrumented fusion performed on 06/20/18. He is 37 days out from his surgery. Mr. Painting states he continues feeling good. He states he is having no leg pain and is getting around easier than before surgery. Last week there was a small section that was not healing well. Despite being on antibiotics the small area has dehisced superficially with the dermal sutures exposed and the adjacent tissue appearing drummond and non- viable and there is drainage. We discussed that he would need to undergo incision and drainage of the surgical site. He was amenable to that plan and presents today for that procedure to be performed. Findings: 1.) Yellowish, clear slightly cloudy, non-odorous fluid throughout the length of the incision from the previous surgery in a pocket in the subcutaneous tissue tracking down through an opening in the lumbar fascia on the left in the rostral aspect of the surgical site. 2.) Non-viable skin edges and subcutaneous tissue in the caudal superficial aspect of the surgical site. Complications: None Operative Summary: Mr. Painting was met in the preoperative area. His surgical history and physical and his surgical chart was reviewed. The procedure to be performed was confirmed with Mr. Painting and we were both in agreement on the procedure to be performed and this matched what was written on the patient's consent form. Any questions that he had were answered before he was taken back to the operating room suite. Mr. Painting was brought back to the operating room suite and put under general anesthesia by the anesthesia staff. He had a Jennings catheter placed in his bladder for the procedure. He had pneumatic compression hose placed on his lower legs bilaterally. Mr. Painting was carefully rolled over onto the Ayaz surgical table with his arms positioned upwards with her shoulders abducted less than 90. His arms were well-padded with foam padding on top of the padding the surgical armboards. The region of his chest and axilla was checked bilaterally to make sure that there were no pressure points over the region of the brachial plexus bilaterally. His nipples were checked be below the chest pad of the Ayaz table no pressure points. All bony prominences were well padded. His Jennings catheter was checked be free from kinks. His pneumatic compression hose was attached to a pneumatic compression device. Mr. Painting was prepped and draped in the usual and standard fashion. A standard surgical timeout was performed identifying the correct patient, the correct procedure, and the correct equipment available for the procedure. The Ioban drape over the dehisced area of the incision was opened as well as the Ioban drape over the remaining aspect of the incision healed from the his previous surgery. The sutures present in the dehisced area the 3-0 Vicryl sut ures in the deeper 2-0 Vicryl sutures were removed with snaps. The incision slightly more rostrally from the dehisced area already healed was opened with a 10 blade scalpel and the fluid in the dehisced area could be seen tracking up underneath the healed incision more rostrally. This subcutaneous pocket was probed rostrally with an instrument and was found to basically extend under the entire incision for the patient's previous surgery. The patient's previous incision was opened over the entire length with the 10 blade scalpel with dermal and superficial bleeding points coagulated with bipolar cautery. The sutures throughout the length of the incision were removed with snaps. The superficial subcutaneous fluid which appeared slightly yellow and mostly clear but to a slight degree turbid but non-over the risks and with no evidence of clear purulence was cultured with aerobic and anaerobic culture swabs. The fluid was then drained with suction. The bed of the subcutaneous tissue was then probed with a sterile Q-tip and there was a slight opening in the fascia in the left side of the rostral aspect of the surgical site tracked just adjacent to the remaining rostral aspect of the L4 spinous process on the left. The fascial layer which for the most part was completely and well healed was then opened. The same fluid was encountered in the subfascial region and began cultured with aerobic and anaerobic culture swabs. The surgical products placed over the spinal canal were carefully removed. The dura was then exposed and inspection of the dura demonstrated the dura to be completely intact. Gelpi retractors were then placed and with the retraction the spinal instrumentation became exposed and all of the bone product placed at the time of the patient's previous fusion procedure was completely removed with suction as well as curettes and Leksell rongeurs. Unlike the superficial epidermis, dermis and superficial subcutaneous tissue that appeared nonviable in the dehisced area of the caudal aspect of the superficial surgical site at the deep subfascial surgical site demonstrated no evidence of nonviable or infected tissue. The superficial tissue planes were then denuded with a Black elevator. The nonviable appearing epidermis, dermis, and superficial subcutaneous tissue was then ellipsed out with a 10 blade scalpel. Bleeding points were controlled bipolar cautery. Surgical site was then copiously pulse lavaged with 3 L of bacitracin/vancomycin/gentamicin solution. Two medium Hemovac drains were then placed in the deep surgical site, one on each side. The surgical site was then closed again in layers with Vicryl suture. The deep musculature was re-approximated with #1 Vicryl suture in an interrupted fashion. The fascial layer was then closed tightly with #1 Vicryl suture in an interrupted fashion. The subcutaneous tissue was then re- approximated with 2-0 Vicryl suture. The dermis and superficial subcutaneous tissue was reapproximated with 3-0 Vicryl suture in an inverted interrupted fashion. The skin edges were then reapproximated with surgical stainless steel rajesh. Four vertical mattress #0 Prolene retention sutures were then placed and the caudal aspect of the incision in the region of where the skin edges had been ellipsed out. The incision was then dressed with a Prevena a suction dressing. The surgical drains were secured with suture. All surgical drapes removed from Mr. Painting. He was carefully rolled over onto the PACU stretcher. He was awoken and extubated by the anesthesia staff. He was taken to the recovery room in stable condition. All surgical counts reported as correct by the scrub and circulating personnel. A [employer] Representative, Ms. Federica Sanders PA-C, assisted with the procedure including the exposure and closure portions of the procedure and also provided irrigation and suctioning throughout the procedure as well as assisting with the pulse lavage of the surgical site.
--- NOTE | 2018-07-25 21:56 | NEURO.PROG ---
Subjective Post Op Day: 0 Pain Management: PO Jennings Catheter: No Diet: Constant carbohydrate Ambulating: Yes Additional Details: Seen earlier tonight when waking up in PACU. Surgical pain as expected. Moving all extremities well. Subsequently transferred to med/surg floor. Monitor surgical cultures. Continue double coverage antibiotics, Vancomycin and Rocephin. Continue post-operative pain control. Arrange for PICC line placement. Arrange for continuation of antibiotics outpatient. Arrange to be seen by [facility] after discharge. Advance diet. Mobilize. Objective : Data - Labs CBC and BMP: 07/25/18 11:45 07/25/18 11:45 - Vital Signs Vital Signs and I&O: Vital Signs - Last Taken Temperature 97.8 F 07/25/18 21:00 Pulse Rate 89 07/25/18 21:00 Respiratory Rate 21 07/25/18 21:00 Blood Pressure 139/82 07/25/18 21:00 Pulse Ox 93 07/25/18 21:00 Intake and Output (24hr x 4 totals) 07/23/18 07/24/18 07/25/18 07/26/18 05:59 05:59 05:59 05:59 Intake Total 1800 / 1800 Output Total 100 / 100 Balance 1700 / 1700
[2018-07-25] MEDS ORDERED: ceFAZolin Inj 2gm (Premix) 2 GM/50 ML BAG IV SCH (22:30)
[2018-07-26] MEDS: oxyCODONE/APAP 10/325 Tab 1 EACH TAB PO PRN ×6 (00:03→21:54)
[2018-07-26 04:56] LABS: BASOPHILS # (AUTO) 0.01 10*3/UL; BASOPHILS % (AUTO) 0.1 % (0-1); EOSINOPHILS # (AUTO) 0.11 10*3/UL; EOSINOPHILS % (AUTO) 1.2 % (0-8); Hematocrit [HCT] 28.5 % (42.0-52.0); Hemoglobin [HGB] 8.8 g/dL (14.0-18.0); LYMPHOCYTES # (AUTO) 2.07 10*3/uL; MEAN CORPUSCULAR HEMOGLOBIN 27.2 PG (27-31); MEAN CORPUSCULAR HGB CONC 30.9 g/dL (33-37); MEAN PLATELET VOLUME 9.9 FL (7.4-12.2); MONOCYTES # (AUTO) 1.09 10*3/UL (0.3-0.8); MONOCYTES % (AUTO) 11.4 % (5-15); NEUTROPHILS # (AUTO) 6.25 10*3/UL; NEUTROPHILS % (AUTO) 65.4 % (50-80); RED BLOOD COUNT 3.24 10^6/uL (4.70-6.10)
[2018-07-26 05:00] LABS: PLATELET MORPHOLOGY COMMENT NORMAL MORPHOLOGY (NORM); RBC MORPHOLOGY COMMENT NORMAL MORPHOLOGY (NORM); WBC MORPHOLOGY COMMENT NORMAL MORPHOLOGY (NORM)
[2018-07-26 05:16] LABS: BLOOD UREA NITROGEN 15 mg/dL (7-22)
[2018-07-26] MEDS ORDERED: Lidocaine 1% 10 MG/ML - 20 ML VIAL SUBCUT PRN (07:44)
[2018-07-26] MEDS ORDERED: LIDOCAINE 2% 20 MG/ML - 20 ML VIAL SUBCUT PRN (07:44)
[2018-07-26] MEDS ORDERED: HEPARIN 500 UNIT/5 ML SYRINGE FOR CENTRAL LINE IVP PRN (07:44)
[2018-07-26] MEDS: cefTRIAXone Inj 2 GM in Sodium Chloride 0.9% 100 ML IV SCH ×2 (07:59→20:29)
[2018-07-26] MEDS: GlipiZIDE Tab 5 MG TABLET PO SCH ×2 (08:48→20:28)
[2018-07-26] MEDS: CYANOCOBALAMIN (VITAMIN B-12) 1,000 MCG TABLET.ER PO SCH (08:49)
[2018-07-26] MEDS: metFORMIN 500 MG TABLET PO SCH ×2 (08:50→20:28)
[2018-07-26] MEDS: LISINOPRIL 5 MG TABLET PO SCH (08:50)
[2018-07-26] MEDS: Multivitamin Tab 1 TAB PO SCH (08:50)
[2018-07-26] MEDS: GABAPENTIN 400 MG CAPSULE PO SCH ×3 (08:50→20:28)
[2018-07-26] MEDS: VENLAFAXINE HCL XR 150 MG CAP PO SCH (08:50)
--- NOTE | 2018-07-26 09:18 | NEURO.PROG ---
Subjective Post Op Day: 1 Pain Management: PO Jennings Catheter: No Diet: Regular Ambulating: Yes Additional Details: On rounds with Dr Hernandez this morning Mr Painting was awake, alert, sitting up in bed. He has ambulated to the bathroom without difficulty. He is afebrile, VSS The Provena dressing is intact and functioning. The hemovac drains had 140ml bloody drainage overnight. Cultures are pending. A PICC line placement has been ordered. [facility] was consulted and appointment was made for Mr Painting to see Dr Washington in [place] at 9AM tomorrow. Plan: Mobilize Continue antibiotic orders pending consultation by Dr Washington in AM. Discontinue hemovac drains in AM Discharge in AM Objective : Data - Labs CBC and BMP: 07/26/18 04:23 07/26/18 04:23 - Vital Signs Vital Signs and I&O: Vital Signs - Last Taken Temperature 97.6 F 07/26/18 07:36 Pulse Rate 73 07/26/18 07:36 Respiratory Rate 18 07/26/18 07:36 Blood Pressure 119/68 07/26/18 07:36 Pulse Ox 96 07/26/18 07:36 Intake and Output (24hr x 4 totals) 07/24/18 07/25/18 07/26/18 07/27/18 05:59 05:59 05:59 05:59 Intake Total 3778 / 3778 Output Total 550 / 550 400 / 400 Balance 3228 / 3228 -400 / -400
--- NOTE | 2018-07-26 16:49 | OT.PROG ---
Progress Note Progress Note: Attempted occupational therapy evaluation X 2 this afternoon, however pt. was not available due to other medical procedures being performed with radiology. Will attempt again in the AM. MIKE Ruelas/Caroline
--- NOTE | 2018-07-26 17:05 | DI ---
AP SUPINE CHEST X-RAY, 07/26/2018 7:44 AM : Clinical History: Postop wound infection. The patient will require long-term IV antibiotic therapy. V erification of PICC line catheter position. Previous Exam: None at this facility. Soft Tissues: No acute soft tissue abnormality. Bones: Normal. Heart: Normal heart size. Lungs: No infiltrates. The left lateral third of the chest is cut off the film. Effusion(s): None. Mediastinum: Normal mediastinum. Nodules: No pulmonary nodules. Catheter Tip Position: The catheter tip is at the junction of the superior vena cava and left brachio cephalic vein and was advanced 3 cm. Reading: Normal chest x-ray. Catheter tip is at the junction of the superior vena cava and left brachiocephali c vein and was advanced 3 cm.
[2018-07-26 17:06] VITALS: RESP 20
--- NOTE | 2018-07-26 17:09 | DI ---
ULTRASOUND GUIDED VENOUS ACCESS, 07/26/2018 7:44 AM Clinical History: Postop wound infection. The patient will require long-term IV antibiotic therapy vi a a PICC line. Previous Exam: None at this facility. Timeout: A "time out" session verified the patient's name and date of . Informed Consent: Using lay terminology, the patient was informed of benefits and risks, to include b ut not be limited to: allergies to medications (skin preparation agents, local anesthetic, and contra st agent if its use is indicated), infection, and blood clots in the catheterized vein with long time use. The patient appeared to comprehend this discussion and signed written consent for the procedure . Technique: Ultrasound was used to identify the left basilic vein for placement of the PICC line. [facility] site was prepped with ChloraPrep with Tint and draped in the usual sterile fashion. 1% lidocaine without epinephrine was used for intradermal and subcutaneous local anesthesia without complication. Findings: This vein initially was cannulated with a 20-gauge Angiocath needle but the catheter did no t enter the vein. The vein was then successfully cannulated above the initial site with the standard introducer needle using realtime ultrasound guidance. The introducer sheath was advanced and position ed without difficulty. Images documenting this procedure inadvertently were not saved. Reading: Successful and uncomplicated cannulation of the left basilic vein. There is a small hematoma circumfe rentially surrounding the vessel secondary to the first cannulation attempt.
--- NOTE | 2018-07-26 17:25 | DI ---
INSERTION OF PICC LINE, 07/26/2018 7:44 AM: Clinical History: Post operative wound infection. The patient will require long-term IV antibiotic th erapy. Time Out: "Time out" session performed to verify patient's name and date of . Informed Consent: Using lay terminology, patient was informed of benefits of long-term IV access and risks of this procedure, to include but not be limited to: allergies to medications (skin preparation agents, local anesthetic, and contrast agent if used), infection, and possible blood clot formation in the arm related to the catheter. Patient appeared to comprehend this discussion and signed written consent for this procedure. Technique: Left arm prepped with ChloraPrep with Tint. Venipuncture achieved under sterile conditions . 5 Kyrgyz double lumen Bard Power Picc Solo PICC catheter inserted without difficulty. Cost And Risk Analysis Manager: Hipolito Valenzuela MD Clay Pigeon Setter: None. Complications/Medications: None. Catheter Tip Localization: Catheter tip position initially identified with an AP portable chest x-ray . Catheter position adjusted as necessary. Catheter Length: 45 cm. Dressing: Standard dry sterile dressing kit used to secure catheter. Patient Condition: Patient tolerated procedure well. Discharged in stable condition. Orders: Standard wound care and dressing change orders written. Reading: PICC line placement as above.
[2018-07-26] MEDS: DOCUSATE 100 MG CAPSULE PO PRN (20:28)
[2018-07-26] MEDS ORDERED: traZODone Tab 50 MG TAB PO SCH (21:00)
[2018-07-26] MEDS ORDERED: Vancomycin Inj 1gm vial ONE (21:47)
[2018-07-27 04:25] VITALS: BP 98/52; TEMP 97.6; O2SAT 95
[2018-07-27] MEDS: cefTRIAXone Inj 2 GM in Sodium Chloride 0.9% 100 ML IV SCH (06:58)
[2018-07-27] MEDS ORDERED: oxyCODONE/APAP 10/325 Tab 1 EACH TAB PO SCH (08:00)
[2018-07-27] MEDS: GlipiZIDE Tab 5 MG TABLET PO SCH (08:13)
[2018-07-27] MEDS: VENLAFAXINE HCL XR 150 MG CAP PO SCH (08:13)
[2018-07-27] MEDS: metFORMIN 500 MG TABLET PO SCH (08:13)
[2018-07-27] MEDS: LISINOPRIL 5 MG TABLET PO SCH (08:13)
[2018-07-27] MEDS: CYANOCOBALAMIN (VITAMIN B-12) 1,000 MCG TABLET.ER PO SCH (08:13)
[2018-07-27] MEDS: Multivitamin Tab 1 TAB PO SCH (08:13)
[2018-07-27] MEDS: GABAPENTIN 400 MG CAPSULE PO SCH (08:13)
--- NOTE | 2018-07-27 12:47 | PTI REPORT ---
Thank you for the referral of Daniele Painting. He was seen on 07/26/18 for an inpatient evaluation secondary to past lumbar fusion and I&D of surgical incisions. SUBJECTIVE: The patient is a 58-year-old male. The patient reports he had his original fusion about a month ago here at our hospital under Dr. Hernandez, but due to complications of his incision not closing had underwent a second surgery yesterday to clean that up and to stitch it back together. The patient states he lives at home by himself in [place] in a trailer with a ramp ascending into it and has had no difficulty since his first surgery. He has all of the adaptive equipment that was issued to him last time as well as the back brace and does not have any difficulty donning or doffing it. He states he did not participate with any physical therapy following his first surgery, stating he was never given orders but he has made an attempt to be as active as he can at home following his restrictions. PAST MEDICAL HISTORY: Past medical history can be found in the patient's medical record. OBJECTIVE FINDINGS: Bed mobility: The patient was able to perform all bed mobility with stand by assistance. Incision: The patient's incision area was covered with a post surgical bandage with two drains in place. Activities of daily living: The patient was able to don and doff and adjust his [place] back brace with minimal assistance just due to all the post op drainages that are in place. Strength/Range of motion: Specific strength and range of motion was not tested due to surgical precautions. Ambulation: The patient did demonstrate the ability to ambulate well over 5 minutes continuously without difficulty with the use of his single point cane which he states he has been using since the s. ASSESSMENT: The patient has good rehab potential. Physical Therapy Goals: To be met by discharge from inpatient: Patient will demonstrate the ability to ascend and descend a flight of stairs using appropriate assistive device safely. Patient will be able to perform all bed mobility and transfers independently. Patient will be able to don/doff and adjust his back brace independently and effectively. Patient will be able to recall and follow his no bending/lifting/twisting restrictions from his surgery. TREATMENT PLAN: Patient will be seen B.I.D during the week and one time per day over the weekend as an inpatient to address the above goals and objectives. INITIAL TREATMENT: Treatment today consisted of the initial evaluation followed by assisting the patient with donning his back brace and adjustment just due to the post op paraphernalia that he had. The patient ambulated over 5 minutes continuously with his back brace, gait belt, contact guard assistance, and his IV pole with the use of his single point cane. JORGE
== END 2018-07-27 08:15 | disposition home or self-care (01) | DRG 921 ==
LOC: OPS 11:17 → MED/SURG 18:22
PROVIDERS: ADMIT Neurological Surgery; ATTEND Neurological Surgery